=== PATIENT | male | born 1950 | race African-American/Black ===

== ENCOUNTER 2016-05-22 12:01 | Emergency (ER) | payer MEDICARE, OTHER ==
[~2016-05-22 12:01] MED LIST: ACETSUP650 PR; ACETUDL PEG; ASAB PO; BANOPHEN25 MG PO/LIQ; BENEPROTEIN PEG; BISR PR; CILOXAN OPH; CLARIT10 PEG; CONSTULOSE PEG; CORTISPORIN OPH; D5NS IV; DEXTROSE IV; DUONEB INH; ERY500 PEG; ERYTHROMYCIN ETHYLSUCCINATE 200 MG/5 ML PEG; ERYTHROMYCIN PEG; FEOSOLEL PEG; FESO4UDL PEG; FESO4UDL PO; FLOMAX4 PEG; FLORASTOR250 MG PEG; GAS-X80 MG PEG; GENASYME40 MG/0.6 PEG; GENTAK0.3 % OPH; GLUCAGEN IM; GLUCAGON SC; GLUCERNA PEG; GLUCOPHAGE1000 MG PEG; GLUCOSE PEG; GLUCOSE TAB PEG; GLUCPH PEG; H20 FLUSH PEG; HEPA50006 SC; HEPARIN INJ5000 U/ML SC; KEPPRA500 PEG; KEPPRAINJ PO; KEPPRAUDL PEG; L20 PEG; LACT30UDL PEG; LEVOTHROID50 MCG PEG; LEVOTHYROXIN100 MCG PEG; LEVOTHYROXIN112 MCG PEG; LEVOTHYROXIN112 MCG PO; LEVOTHYROXIN75 MCG PEG; LIOR10 PEG; LIQUID TEARS OPH; LOP25 PEG; LOP25 PO; MULTIPLE VIT PEG; MULTIPLE VIT PO; MURO1285% OPH; MYTAB GAS80 MG PEG; NEXIUM40 MG PEG; NEXIUM40 PEG; NORCO1 TA1 PEG; NORCO1 TA1 PO; NOVOLOG SC; NOVOPEN SC; PREV30 PEG; PREV30 PO; PRILOSEC10 M1 PEG; PRILOSEC40 MG PEG; REFRESH OPH; REFRESH PLUS0.5 % OPH; SODIUM CHLORIDE IV; T PEG; T PO; TEARGEN OP; THERA MULTI1 ML PEG; TRANSSCOP TOP; TYLENOL 8 HR650 MG PEG; TYLENOL PEG; VITAMIN C100 MG PEG; VITAMIN D1000 UNI1 PEG; VITAMIN D31000 UNIT PEG; VITAMIN D31000 UNIT PO; VITC500 PEG; XIFAXAN550 MG PEG; ZINC220C PEG; [UNRECOGNIZED DRUG - OTHER]; [UNRECOGNIZED DRUG - OTHER]; [UNRECOGNIZED DRUG - OTHER] OPH; [UNRECOGNIZED DRUG - OTHER] PEG; [UNRECOGNIZED DRUG - OTHER] PEG; [UNRECOGNIZED DRUG - OTHER] PEG; [UNRECOGNIZED DRUG - REMARK] PO; [UNRECOGNIZED DRUG - REMARK] PO
[2016-05-22] MEDS ORDERED: PEP20 PEG (12:42)
[2016-05-22] MEDS ORDERED: SUCR PEG (12:43)
[2016-05-22] MEDS ORDERED: LOPID6 PEG (12:43)
[2016-05-22] MEDS ORDERED: CONSTULOSE PEG (12:44)
[2016-05-22] MEDS ORDERED: GLUCAGEN IM (12:44)
[2016-05-22] MEDS ORDERED: ADVIL PEG (12:45)
[2016-05-22] MEDS ORDERED: T PEG (12:45)
[2016-05-22 13:50] LABS: BE (BASE EXCESS) 3.7 MEQ/L (0 +/- 2.5); CARBOXYHEMOGLOBIN 1.3 % (0-3); HCO3 (ACTUAL BICARBONATE) 26.6 MEQ/L (23-27); HEMOBLOGIN CONTENT 9.2 G/DL (14-18); INSTRUMENT SERIAL # 8087; METHEMOGLOBIN 0.6 % (0-3); PCO2 (CO2 TENSION) 34 MMHG (35-45); PO2 (O2 TENSION) 94 MMHG (79-93); pH 7.52 (7.37-7.43)
[2016-05-22 13:51] LABS: HEMOGLOBIN 9.3 g/dL (13.6-17.8); MEAN CORPUS HGB CONC 30.8 g/dL (32.0-36.0); MEAN PLATELET VOLUME 10.6 fL (9.2-13.0); RBC DISTRIBUTION WIDTH 16.5 % (12.0-16.0)
[2016-05-22 13:51] LABS: ALLENS TEST Pos; O2 CONTENT 12.6 VOL% (18-24); OPERATOR ID 14335; SAMPLE Arterial
[2016-05-22 13:53] LABS: HEMATOCRIT 30.2 % (40.0-51.0); MEAN CORPUSCULAR HEMOGLOB 23.8 pg (26.0-34.0); MEAN CORPUSCULAR VOLUME 77.4 fL (80-100); PLATELET COUNT 276 10/3/uL (150-400); WHITE BLOOD CELLS 7.1 10/3/uL (4.5-10.5)
[2016-05-22 14:01] LABS: INTERNATIONAL NORMAL RATI 1.2 UNITS (-); PROTIME (NOT ORD) 14.8 SEC (12.0-14.5)
[2016-05-22 14:06] LABS: A/G RATIO 0.4 (0.7-1.9); ALBUMIN 2.3 G/DL (3.5-5.0); CALCIUM, SERUM 8.9 MG/DL (8.5-10.4); CHLORIDE, SERUM 102 MMOL/L (96-112); CO2 (CARBON DIOXIDE) 28 MMOL/L (24-34); CREATININE 0.46 MG/DL (0.70-1.30); GFR AFRICAN AMERICAN 134 ML/MIN (>=60); GFR NON AFRICAN AMERICAN 116 ML/MIN (>=60); GLUCOSE, SERUM 120 MG/DL (60-99); POTASSIUM, SERUM 4.3 MMOL/L (3.5-5.3); SGOT(AST) 57 U/L (5-40); SGPT(ALT) 26 U/L (5-65); SODIUM, SERUM 137 MMOL/L (135-148); TOTAL PROTEIN 8.3 G/DL (6.0-8.5)
[2016-05-22 14:08] LABS: ALKALINE PHOSPHATASE 134 U/L (45-117); BUN (BLOOD UREA NITROGEN) 21 MG/DL (6-23); TOTAL BILIRUBIN 0.7 MG/DL (0-1.2)
[2016-05-22 14:10] LABS: BAND NEUTROPHILS 6 %; EOSINOPHILS 4 %; EOSINOPHILS ABSOLUTE (CALC) 0.28 10/3/uL (0.0-0.53); LYMPHOCYTES 12 %; LYMPHOCYTES ABSOLUTE (CALC) 0.85 10/3/uL (0.67-4.30); MICROCYTES 1+ (5-10/OIF) (0-5/OIF); MONOCYTES 10 %; MONOCYTES ABSOLUTE (CALC) 0.71 10/3/uL (0.21-1.20); NEUTROPHILS ABSOLUTE (CALC) 5.25 10/3/uL (2.02-8.40); PLATELET ESTIMATE ADQ (ADEQUATE); SEGMENTED NEUTROPHIL (0) 68 %; TOTAL NUCLEATED CELLS 100
[2016-08-04] MEDS ORDERED: MULTIVIT/MIN PEG (15:51)
[2016-08-04] MEDS ORDERED: ERY500 PEG (15:51)
[2016-08-04] MEDS ORDERED: FESO4UDL PEG (15:52)
[2016-08-04] MEDS ORDERED: FLOMAX4 PEG (15:53)
[2016-08-04] MEDS ORDERED: PROBIOTIC CAPSULE PEG (15:54)
[2016-08-04] MEDS ORDERED: KEPPRAUDL PEG (15:56)
[2016-08-04] MEDS ORDERED: CONSTULOSE PEG (15:57)
[2016-08-04] MEDS ORDERED: LIQUID TEARS OPH (15:57)
[2016-08-04] MEDS ORDERED: MURO1285% OPH (15:58)
[2016-08-04] MEDS ORDERED: SYN075 PEG (15:58)
[2016-08-04] MEDS ORDERED: NEXIUM40 MG PEG (15:59)
[2016-08-04] MEDS ORDERED: XIFAXAN550 MG PEG (15:59)
[2016-08-04] MEDS ORDERED: LIOR10 PEG (15:59)
[2016-08-04] MEDS ORDERED: L20 PEG (16:00)
[2016-08-04] MEDS ORDERED: SUCR PEG (16:00)
[2016-08-04] MEDS ORDERED: MYTAB GAS80 MG PEG (16:01)
[2016-08-04] MEDS ORDERED: GLUCPH PEG (16:02)
[2016-08-04] MEDS ORDERED: GLUCOPHAGE1000 MG PEG (16:02)
[2016-08-04] MEDS ORDERED: PEP20 PEG (16:02)
[2016-08-04] MEDS ORDERED: VITAMIN D400 UNI1 PEG (16:03)
[2016-08-04] MEDS ORDERED: HUMALOG SC (16:05)
[2016-08-04] MEDS ORDERED: ADVIL 100100 MG/5 M PEG (16:06)
[2016-08-04] MEDS ORDERED: NORCO1 TA1 PEG (16:07)
[2016-08-04] MEDS ORDERED: ULTRAM50 PEG (16:07)
== END 2016-05-22 16:04 | disposition home or self-care (01) ==
LOC: ER 12:01
PROVIDERS: Internal Medicine Nephrology; Physician Assistant
DX: L89.104 Pressure ulcer of unspecified part of back, stage 4 (principal); I25.2 Old myocardial infarction; I12.9 Hypertensive chronic kidney disease with stage 1 through stage 4 chronic kidney disease, or unspecified chronic kidney disease; N18.9 Chronic kidney disease, unspecified; E10.9 Type 1 diabetes mellitus without complications; D64.9 Anemia, unspecified; Z86.73 Personal history of transient ischemic attack (TIA), and cerebral infarction without residual deficits; Z79.4 Long term (current) use of insulin
CPT/HCPCS: 31720; 36600; 80053; 82805; 85007; 85027; 85610; 94002; 99285

== ENCOUNTER 2016-07-19 18:57 | Inpatient (IN) | payer MEDICARE, OTHER ==
--- NOTE | ~2016-07-19 | CN ---
Consultation Report [facility] [address] [place]. [address] NAME: BARRY GARCIA : 46 STATUS : ADM IN PAT#: [id number] AGE: 65 ADM/REG DATE : 07/19/16 MR#: [id number] REPORT SERV DATE: 07/20/16 DICTATED BY: JESUS PAGAN DATE: 07/20/16 REPORT STATUS : Draft TRANSCRIBED BY: MODL DATE: 07/20/16 GI CONSULTATION DATE OF CONSULTATION: 07/20/2016 He is a 65-year-old male patient admitted 07/19/2016. REASON FOR CONSULTATION: GI bleed, Hemoccult-positive stools. HISTORY OF PRESENT ILLNESS: Mr. Garcia is a 65-year-old male patient, who has a history of chronic vegetative state secondary to CVA in 2012. It should be noted that all of his history of present illness has been gathered from the chart as well as the primary RN. It appears that he was sent in yesterday from [facility] for "GI bleed." After reviewing his records, it looks like he had bleeding around his PEG tube site with a drop in his hemoglobin. Looking back at [facility] records, hemoglobin in May, he had a hemoglobin noted to be 9.3. When he came in to [facility], hemoglobin was 6.6. He is presently being transfused packed red blood cells. He is unable to give any history at all. Notes revealed that he had Hemoccult in the emergency room that were positive, however noted to be light brown stool. There has been no mention of nausea, vomiting, and hematemesis. PEG tube was evaluated by myself, it flushed and pulled back, the return was gastric content; however, he does have bright red blood oozing from around his PEG tube site. He also has a Olivas catheter in. He has some bleeding from around his urethra also. I have discussed the case with Dr. Gomez. We will plan on pursuing upper endoscopy today to rule out any ulcerations from the PEG tube or buried bumper syndrome. He does have also a history of grade 2 esophageal varices, found on EGD 03/28/2016. We saw him in for concerns of upper GI bleed. Findings on that exam had revealed no evidence of GI bleeding and a grade 2 varices with no banding being performed as there was no suggestion of any recent bleeding or on the entire examination of his stomach. Unable to tell when his last colonoscopy was. I have discussed with the primary RN. We will plan on the EGD today. PAST MEDICAL HISTORY: Positive for GI bleed, CVA 2012 with persistent vegetative state, status post tracheostomy and PEG tube, chronic respiratory failure with ventilator dependence, hepatitis C, hypertension, chronic kidney disease, type 2 diabetes, coronary artery disease with history of [place], hypothyroidism, anemia, BPH, gastroparesis, urinary tract infections, sacral decubitus, sepsis, and seizure disorder. SURGICAL HISTORY: Trach, PEG, and cholecystectomy. FAMILY HISTORY: Unable to be obtained. SOCIAL HISTORY: Lives at [facility]. No alcohol, tobacco, or illicits noted in the chart. ALLERGIES: NO KNOWN ALLERGIES. Consultation Report [address] [place]. [address] NAME: BARRY GARCIA : 46 STATUS : ADM IN [facility]#: [id number] AGE: 65 ADM/REG DATE : 07/19/16 MR#: [id number] REPORT SERV DATE: 07/20/16 DICTATED BY: JESUS PAGAN DATE: 07/20/16 REPORT STATUS : Draft TRANSCRIBED BY: RASTA DATE: 07/20/16 HOME MEDICATIONS: Tylenol; DuoNeb; Artificial Tears; baclofen; vitamin D; Nexium; Pepcid; iron; Lasix; Lopid; GlucaGen; Motrin; NovoLog; Constulose; Keppra; Synthroid; Glucophage; multivitamin; Xifaxan; simethicone; Carafate; Flomax; Ultram; erythromycin; probiotic; and D mannose. REVIEW OF SYSTEMS: Unable to be obtained secondary to the patient's mental status. PHYSICAL EXAMINATION: VITAL SIGNS: Temperature 98.6, pulse 93, respirations 16, and blood pressure 95/55. NEUROLOGIC: Noncommunicative. Chronically debilitated male, resting in bed. Noted chronic vegetative state. Eyes are open. GENERAL: He has noted chronic debility. No acute distress. HEAD, EARS, EYES, NOSE, AND THROAT: Anicteric. Pupils are equal, round, and reactive to light and accommodation. NECK: Supple neck. No JVD. LUNGS: Coarse. Notable trach and vent. CARDIOVASCULAR SYSTEM: Regular rate and rhythm. ABDOMEN: Round with mild distention. Hypoactive bowel sounds in all four quadrants. PEG tube with oozing of bright red blood around the site. No rebound or guarding elicited on exam. EXTREMITIES: He has generalized edema and noted bilateral upper and lower extremity contractures. PERTINENT LABORATORY DATA: Sodium 139, potassium 3.5, BUN is 21, and creatinine is 0.69. White count 5.9, hemoglobin 6.9, hematocrit 24.3, and platelet count 24.1. INR of 1.1. Heme-positive in the emergency room. ASSESSMENT/PLAN: 1. Hemoccult-positive stools. Questionable GI bleed. Positive bleeding from around the PEG. 2. Acute blood loss anemia with history of chronic anemia. 3. UTI. 4. Chronic ventilator dependence vegetative state, status post CVA 2012. 5. Oropharyngeal dysphagia status post PEG. 6. History of grade 2 varices on endoscopy in March of 2016. PLAN: 1. PPI drip. 2. EGD today. 3. Followup H and H. 4. Morning labs. 5. Other recommendations to follow endoscopy. Consultation Report [address] [place]. [address] NAME: BARRY GARCIA : 46 STATUS : ADM IN [facility]#: [id number] AGE: 65 ADM/REG DATE : 07/19/16 MR#: [id number] REPORT SERV DATE: 07/20/16 DICTATED BY: JESUS PAGAN DATE: 07/20/16 REPORT STATUS : Draft TRANSCRIBED BY: RASTA DATE: 07/20/16 STEPHANIE/RASTA PAUL Hyman / [id number] CC: Luis F Roldan M.D.
--- NOTE | ~2016-07-19 | CN ---
Consultation Report [address] [place]. [address] NAME: BARRY GARCIA : 46 STATUS : ADM IN PAT#: [id number] AGE: 65 ADM/REG DATE : 07/19/16 MR#: [id number] REPORT SERV DATE: 07/21/16 DICTATED BY: JORDI TELLEZ III DATE: 07/21/16 REPORT STATUS : Draft TRANSCRIBED BY: MODL DATE: 07/21/16 CONSULTATION DATE OF CONSULTATION: 07/21/2016 REASON FOR CONSULTATION: Suprapubic tube placement. HISTORY OF PRESENT ILLNESS: Mr. Garcia is a 65-year-old, male with a history of chronic respiratory failure, vent dependent and chronic debility, bed-bound, who is a resident of [facility]. He is transferred to the ER for possible GI bleed. The patient has been dependent, has a history of encephalopathy and is unable to give a history. MEDICATIONS: Reviewed. ALLERGIES: NO KNOWN DRUG ALLERGIES. PAST MEDICAL HISTORY: 1. CVA with chronic vegetative state. 2. Gastric outlet obstruction. 3. Coronary artery disease with history of [place]. 4. Hepatitis C. 5. Diabetes. 6. Dementia. 7. Hyperlipidemia. 8. Chronic encephalopathy. 9. Chronic sacral pressure ulcer. 10.BPH with chronic Olivas. 11.Vent dependent. 12.Dysphagia with PEG tube. 13.Chronic kidney disease. 14.Anemia. 15.Hypertension. 16.History of seizures. 17.History of pneumonia. 18.History of anasarca. 19.Hypothyroidism. SURGICAL HISTORY: Status post tracheostomy and PEG tube placement and multiple debridement. PHYSICAL EXAMINATION: The patient has a Olivas catheter draining dark cloudy urine. ASSESSMENT: Consultation Report [address] [place]. [address] NAME: BARRY GARCIA : 46 STATUS : ADM IN PAT#: [id number] AGE: 65 ADM/REG DATE : 07/19/16 MR#: [id number] REPORT SERV DATE: 07/21/16 DICTATED BY: JORDI TELLEZ III DATE: 07/21/16 REPORT STATUS : Draft TRANSCRIBED BY: MODL DATE: 07/21/16 1. Urinary retention with chronic Olivas catheter. 2. Recurrent urinary tract infections. PLAN: We will have a suprapubic tube placed with CT guidance. PH/MODL Jordi Tellez III, M.D. / [id number] CC: Luis F Roldan M.D.
--- NOTE | ~2016-07-19 | HP ---
History And Physical [place] [address] [facility] [place]. [address] NAME: BARRY GARCIA : 46 STATUS : ADM IN PAT#: [id number] AGE: 65 ADM/REG DATE : 07/19/16 MR#: [id number] REPORT SERV DATE: 07/20/16 DICTATED BY: TAQUERIA DE LA FUENTE DATE: 07/20/16 REPORT STATUS : Draft TRANSCRIBED BY: MODL DATE: 07/20/16 DATE OF ADMISSION: 07/19/2016 CHIEF COMPLAINT: Severe anemia and positive Hemoccult. HISTORY OF PRESENT ILLNESS: The patient is a 65-year-old -[place] male with history of chronic respiratory failure, vent-dependent and chronic debility, bed bound, who is a resident of [facility] and was transferred to [facility] Emergency Department for further evaluation of possible GI bleed with positive Hemoccult x3 and worsening anemia on top of chronic anemia. The patient is vent dependent and has history of encephalopathy therefore, unable to obtain complete medical, family, and social history. No family member is at bedside. I obtained information from discussing with nurse practitioner at [facility], reviewing medical records from [facility] EMR, medical records obtained from [facility], and recent emergency room visit on 07/19/2016. ALLERGIES: NO KNOWN DRUG ALLERGIES. CODE STATUS: Reviewed POST form from [facility]. The patient is a full code. MEDICATIONS: 1. Tylenol 650 mg per PEG q.4 hours p.r.n. 2. DuoNeb inhalation three times a day scheduled. 3. Artificial Tears one drop both eyes twice a day. 4. Baclofen 10 mg three times a day. 5. Vitamin D 1000 units via PEG daily. 6. Nexium 40 mg via PEG daily. 7. Pepcid 20 mg via PEG at bedtime. 8. Iron supplement 220 mg twice a day. 9. Lasix 20 mg every morning. 10.Lopid 600 mg twice a day. 11.Glucagon 1 mg IM p.r.n. for hypoglycemia. 12.Ibuprofen 400 mg every four hours p.r.n. 13.Insulin sliding scale. 14.Lactulose 30 mL twice a day. 15.Keppra 500 mg twice a day. 16.Levothyroxine 75 mcg tablet every morning. 17.Metformin 1000 mg every morning. 18.Metformin 500 mg at bedtime. 19.Multivitamin every morning. 20.Rifaximin 550 mg tablet twice a day. 21.Simethicone 80 mg tablet every morning. 22.Sodium chloride ophthalmic one drop both eyes three times a day. 23.Carafate 1 g via PEG twice a day. History And Physical [address] [address] NAME: BARRY GARCIA : 46 STATUS : ADM IN [facility]#: [id number] AGE: 65 ADM/REG DATE : 07/19/16 MR#: [id number] REPORT SERV DATE: 07/20/16 DICTATED BY: TAQUERIA DE AL FUENTE DATE: 07/20/16 REPORT STATUS : Draft TRANSCRIBED BY: RASTA DATE: 07/20/16 24.Flomax 0.4 mg at bedtime. 25.Tramadol 50 mg every eight hours p.r.n. for pain. 26.E.E.S granules 200 mg per 5 mL every eight hours for history of gastroparesis. 27.Probiotics one cap every morning. 28.D-mannose 450/250 mg twice a day via PEG. PAST MEDICAL HISTORY: 1. Includes CVA with chronic vegetative state with right hemiparesis, bed bound. 2. History of gastric outlet obstruction and chronic ileus. 3. History of coronary artery disease with history of [place]. 4. Hepatitis C. 5. Type 2 diabetes with insulin. 6. Dementia. 7. Hyperlipidemia. 8. Chronic encephalopathy. 9. Chronic sacral pressure ulcer, stage IV. 10.BPH with history of urinary retention and chronic Olivas. 11.Chronic respiratory failure, vent dependent. 12.Dysphagia with PEG. 13.Chronic kidney disease, stage II. 14.History of iron deficiency anemia. 15.Hypertension. 16.History of seizure. 17.History of Pseudomonas and MRSA pneumonia. 18.History of sacral wound infection with Acinetobacter. 19.History of anasarca. 20.Hypothyroidism. PAST SURGICAL HISTORY: Status post tracheostomy and PEG tube placement, multiple debridement of his pressure ulcer. SOCIAL HISTORY: The patient is a resident of [facility]. He is a retired dockworker and . The patient has a family; however, he has a conservator in place for him, her name is Katelynn Snyder. REVIEW OF SYSTEMS: Limited secondary to the patient being on the vent and encephalopathic. I discussed with nurse practitioner at [facility], he reports the patient with chronic anemia; however, recently been evaluated for possible GI bleed secondary to decreasing H and H. The patient with positive Hemoccult x3. Therefore, the patient was sent to the emergency room for further evaluation of anemia and possible GI bleed. [employer] reports the patient with history of Acinetobacter infected wound, but none recently. He reports no history of the patient having Acinetobacter in sputum. The patient with history of MRSA and Pseudomonas pneumonia. I discussed with nurse, reports the patient completing his second unit of blood transfusion and tolerated, is pending EGD and GI has evaluated the patient today. History And Physical [address] [address] NAME: BARRY GARCIA : 46 STATUS : ADM IN [facility]#: [id number] AGE: 65 ADM/REG DATE : 07/19/16 MR#: [id number] REPORT SERV DATE: 07/20/16 DICTATED BY: TAQUERIA DE LA FUENTE DATE: 07/20/16 REPORT STATUS : Draft TRANSCRIBED BY: RASTA DATE: 07/20/16 VITAL SIGNS: A.m. vital signs, temp 99.8, pulse of 92, respiratory rate of 16, BP of 95/54, sat O2 100% with FiO2 of 40% CMV, weight 65.6 kg, BMI of 24.7. LABORATORY STUDIES: On 07/19/2016 revealed WBC of. 8.5, hemoglobin 6.6, hematocrit 24.7, and platelet of 277. Sodium 136, potassium 3.6, chloride 93, CO2 of 32, BUN 27, creatinine of 0.86, GFR of 104, and glucose of 137. AST 62. Bilirubin 1.1, total protein 8.4. ALT 18. Albumin 2.0. Alkaline phosphatase of 127. Magnesium of 2.1. 07/20/2016, laboratory revealed WBC of 6.8, hemoglobin 6.9, hematocrit 24.3, INR 1.1, PT of 14.5, PTT of 32.7, and platelet of 240. Lactate on admission was 6.4, and lactate on 07/20/2016 was 4.2. The patient on a ventilator with tidal volume set at 0500 hours PEEP of 8 and PIP of 26, FiO2 40%. Rate of 10. Chest x-ray on 07/19/2016, revealed stable enlarged central pulmonary arteries. Stable pleural thickening on the right. No left pleural effusion seen and lungs are clear with normal peripheral vasculature. Urine culture preliminary done on 07/19/2016 is gram-negative bacilli approximately 100,000, pending ID and sensitivity. PHYSICAL EXAMINATION: NEURO: The patient with encephalopathy but opens eyes to minimal stimulation. HEENT: Oral mucosa moist. Trach secured. No drainage noted or bleeding. The patient is dentitious. Eyes, clear and bilateral nonicteric. No drainage noted. CHEST: No chest deformity noted. LUNGS: Mild upper rhonchi noted on auscultation. No wheezing. The patient is on a vent. CV: Regular rate and rhythm. Normal S1, S2. Mapped blood pressure of 67. ABDOMEN: The patient's abdomen is round, but soft on palpation. Good bowel sounds. Left upper quadrant PEG tube secured noted, red blood on PEG tube dressing but no active bleeding noted. : Olivas in use with clear yellow urine. Intact. EXTREMITIES: Generalized and a sacral of 1+ edema, right wrist contracture noted. Bilateral heels are floated. SKIN: The sacral wound dressing intact. IV fluid with normal saline at 40 mL. ASSESSMENT: 1. Possible gastrointestinal bleed with positive Hemoccult. 2. Acute blood loss on top of chronic anemia. 3. Gram-negative bacilli urinary tract infection. 4. Chronic respiratory failure, vent dependent. 5. Dysphagia with PEG tube. 6. History of cerebrovascular accident with right hemiparesis and chronic debility. 7. Type 2 diabetes with insulin. 8. Chronic kidney disease, stage II. 9. Chronic sacral pressure ulcer, stage II with history of Acinetobacter and wound. 10.Seizure disorder. 11.Hypertension, primary with BP low tendency likely secondary to acute blood loss versus sepsis with urinary tract infection. 12.History of gastric outlet obstruction and ileus. 13.History of urinary tract infection secondary to history of urinary retention. History And Physical [address] [address] NAME: BARRY GARCIA : 46 STATUS : ADM IN [facility]#: [id number] AGE: 65 ADM/REG DATE : 07/19/16 MR#: [id number] REPORT SERV DATE: 07/20/16 DICTATED BY: TAQUERIA DE LA FUENTE DATE: 07/20/16 REPORT STATUS : Draft TRANSCRIBED BY: RASTA DATE: 07/20/16 14.Chronic encephalopathy, status post cerebrovascular accident. 15.Chronic debility, status post cerebrovascular accident. PLAN: 1. I appreciate GI consult. The patient is n.p.o. with IV Protonix and scheduled EGD today. The patient with admission hemoglobin and hematocrit of 6.6 and 24.7, Hemoccult in the ER as well as reported Hemoccult at [facility] were positive. The patient just completed two units of pack red blood cells. We will obtain post blood transfusion H and H and repeat CBC and BMP in a.m. The patient is at risk for further hypoxia or acute coronary syndrome with severe anemia. 2. The patient with history of UTI secondary to history of urinary tract infection. The patient admission urine culture with preliminary result of gram-negative bacilli, pending ID and sensitivity. We will continue IV Rocephin for now. Continue the patient on contact isolation given the history of Acinetobacter, his wound. The patient is at risk for sepsis. 3. The patient with chronic respiratory failure, vent dependent. We will continue current vent support. The patient is stable with his respiratory status. His chest x-ray on admission were stable with no acute changes. Continue to monitor sat O2. Continue breathing treatment. If necessary we will consult Pulmonology but at this time, we will hold consult since respiratory status stable. The patient is at risk for further hypoxia. 4. The patient with history of dysphagia with PEG tube. The patient continued to tolerate tube feeding; however, tube feeding is on hold for now given n.p.o. status for EGD. We will plan to continue to monitor gastric residuals as well as tube feeding residual once tube feeding resumed, keep head of bed greater than 30 degrees. The patient is at risk for aspiration. The patient with history of ileus. We will need to continue prokinetic once the patient n.p.o. status discontinue. Consider Reglan. The patient currently on scheduled erythromycin. 5. The patient with history of diabetes. We will hold off on oral agent. Continue sliding scale and Accu-Chek q.4 hours. The patient is at risk for DKA. 6. The patient with admission creatinine of 0.86. Improve with IV fluid. Today is 0.69. The patient does have history of chronic kidney disease, stage II. We will monitor renal function, at risk for ROSA. 7. Pending wound care referral for his chronic pressure ulcer. Monitor for any signs and symptoms of infection. Continue contact isolation. The patient is at risk for osteomyelitis or recurrent wound infection. 8. The patient with history of seizure disorder. Since the patient is n.p.o. at this time, pending EGD. We will refer to Pharmacy to change Keppra via PEG to IV. 9. The patient with history of hypertension, but came in with low BP. He was not placed on pressor. The patient is maintaining his systolic above 95 within map greater than 65. Continue to monitor BP if needed. We will give pressor to maintain BP but for now, likely will improve if GI bleed resolved and the patient has had blood transfusion. The patient is at risk for further hypoxia. 10.The patient with history of hypothyroidism. He is on levothyroxine. Since n.p.o., we will change that from via PEG to IV for now. 11.We will hold other oral medication to include Famotidine since the patient is on IV Protonix, iron sulfate, multivitamin, Lasix, gemfibrozil, metformin, and if the patient History And Physical [address] [address] NAME: BARRY GARCIA : 46 STATUS : ADM IN [facility]#: [id number] AGE: 65 ADM/REG DATE : 07/19/16 MR#: [id number] REPORT SERV DATE: 07/20/16 DICTATED BY: TAQUERIA DE LA FUENTE DATE: 07/20/16 REPORT STATUS : Draft TRANSCRIBED BY: RASTA DATE: 07/20/16 is off n.p.o., he can continue. We can continue baclofen for now. Other medications via PEG should be held until n.p.o. as listed. We will also discontinue lactulose for now. Monitor bowel movement. The patient is at risk for recurrent or worsening ileus, bowel obstruction. 12.We will repeat laboratory study in a.m. Post form in chart, in chart. 13.The patient is full code. DICTATED BY: Sun Galloway NP CLP/RASTA Taqueria De La Fuente M.D. / [id number] CC: Luis F Roldan M.D.
--- NOTE | ~2016-07-19 | DS ---
Discharge Summary [facility] [address] [place]. [address] NAME: BARRY GARCIA : 46 STATUS : DIS IN PAT#: [id number] AGE: 65 ADM/REG DATE : 07/19/16 MR#: [id number] REPORT SERV DATE: 08/04/16 DICTATED BY: TAQUERIA DE LA FUENTE DATE: 08/03/16 REPORT STATUS : Draft TRANSCRIBED BY: MODCecilia DATE: 08/03/16 Data Collection from hospitalization DISCHARGE DIAGNOSES: 1. Recent GI bleed - resolved - with history of grade 3 esophageal varices and AVM. 2. Anemia of chronic disease with recent acute blood loss anemia. 3. ESBL Proteus and E. coli urinary tract infection. 4. Chronic respiratory failure - vent dependent. 5. Dysphagia with PEG tube. 6. History of urinary retention. 7. Chronic anasarca. 8. Ascites with cirrhosis. 9. Type 2 diabetes. 10.Hypertension. 11.History of cerebrovascular accident with chronic vegetative state and right hemiparesis. 12.History of gastric outlet obstruction and chronic ileus. 13.Coronary artery disease. 14.History of myocardial infarction. 15.Hepatitis C. 16.Dementia. 17.Hyperlipidemia. 18.Chronic encephalopathy. 19.Chronic sacral pressure ulcer, stage IV. 20.Benign prostatic hypertrophy. 21.Stage 2 chronic kidney disease. 22.History of seizures. 23.Hypothyroidism. CONSULTATIONS: 1. Dr. Jordi Velázquez. 2. Dr. Berhane Ortasell. PROCEDURES PERFORMED: 1. EGD to the small bowel, 07/20/2016. 2. CT scan of the abdomen and pelvis without contrast, 07/23/2016. 3. Introduction of suprapubic catheter, 07/24/2016. MEDICATIONS: Artificial Tears one drop in each eye twice a day; Lioresal 10 mg per PEG tube three times a day; vitamin D 1000 units per PEG tube every morning; erythromycin 500 mg every 8 hours; ferrous sulfate 220 mg per PEG tube twice a day; NovoLog injection insulin as instructed; Constulose 30 mL per PEG tube twice a day; Synthroid 75 mcg per PEG tube every morning; Centrum multivitamins with minerals 15 mL daily; Nexium 40 mg per PEG tube daily at 6 a.m.; Zosyn 3.375 g IV every 8 hours as instructed; Xifaxan 550 mg per PEG tube twice a day; Tammy-128 one drop three times a day; Carafate 1 g per PEG tube twice a day; Flomax 0.4 mg per PEG tube at bedtime; sodium chloride 25 mL/hour as instructed; DuoNeb 3 mL via inhaler every four hours; erythromycin granules as instructed; Lasix 20 mg per PEG tube every morning; probiotic capsule one capsule every morning; Mytab Gas 80 mg per PEG tube Discharge Summary [address] [address] NAME: BARRY GARCIA : 46 STATUS : DIS IN PAT#: [id number] AGE: 65 ADM/REG DATE : 07/19/16 MR#: [id number] REPORT SERV DATE: 08/04/16 DICTATED BY: TAQUERIA DE LA FUENTE DATE: 08/03/16 REPORT STATUS : Draft TRANSCRIBED BY: RASTA DATE: 08/03/16 every morning; Glucophage 500 mg per PEG tube at bedtime and 1000 mg per PEG tube every morning; Keppra 500 mg per PEG tube twice a day; Pepcid 20 mg per PEG tube at bedtime; DuoNeb inhaled solution one nebulized inhaler three times a day; Lopid 600 mg per PEG tube twice a day; D-Mannose 450 mg twice a day; Tylenol 650 mg per PEG tube every four hours as needed; Ultram 50 mg per PEG tube every 8 hours as needed; and glucagon 1 mg IM as needed. CONDITION AT DISCHARGE: Stable. DISPOSITION: The patient was discharged to [facility] [place] [facility] on tube feedings with activities as instructed. HOSPITAL COURSE: This is a 65-year-old man who has a history of chronic respiratory failure, ventilator dependent and chronic debility and is bed-bound, who is a resident of [facility] [place]. He was transferred to the [facility] Emergency Department with possible GI bleed and positive Hemoccult x3 as well as worsening anemia on top of chronic anemia. He is ventilator dependent and has a history of encephalopathy, therefore we were unable to obtain a complete medical, family, and social history. The patient was admitted to the hospital at this time for further evaluation and treatment. Upon admission, the patient was held n.p.o., IV Protonix was started. It was felt he should undergo an EGD. He was transfused two units of packed red blood cells. IV Rocephin was continued. The patient was on contact isolation given his history of Acinetobacter of his wound. The patient is at risk for sepsis. We would continue to monitor his O2 saturations. Breathing treatments were continued. The patient has a PEG tube with dysphagia. He continued to tolerate tube feedings; however, tube feedings were on hold for now given his n.p.o. status for the EGD. The head of his bed would be kept elevated at greater than 30 degrees, sliding scale insulin was provided. IV fluids were continued. The patient does have a history of a seizure disorder. He was going to be given IV Keppra. He has a history of hypothyroidism and is on levothyroxine. Since he was n.p.o., we changed that to IV levothyroxine. Baclofen was continued for now. The following day, he was seen by Berhane Rivera regarding GI bleed and Hemoccult-positive stools. The patient has a Olivas catheter in place. His PEG tube was evaluated, it flushed and pullback. The return was gastric content; however, he did have bright red blood oozing from around the PEG tube site. He had some bleeding from his urethra also. We would plan on pursuing upper endoscopy later in the day to rule out ulcerations from the PEG tube or buried bumper syndrome. He has a history of grade 2 esophageal varices found on the EGD 03/28/2016. Findings on that exam had revealed no evidence of GI bleeding and grade 2 varices with no banding being performed. We were unable to tell when his last colonoscopy was. Proton pump inhibitor drip was continued. EGD was performed. This revealed healthy PEG tube and grade 3 varices. On 07/21/2016, he was seen by Dr. Jordi Velázquez regarding suprapubic tube placement. The patient has a Olivas catheter in place draining dark cloudy urine. The patient has urinary retention with chronic Olivas catheter and recurrent urinary tract infections. It was felt that he should undergo suprapubic tube placement with CT guidance. Abdomen was soft with moderate distention. PEG tube site looked normal. The upper GI bleed/PEG tube bleed had resolved. IV Protonix was continued as well as sliding scale insulin. Breathing treatments were continued as well. On 07/22/2016, the patient was tolerating tube feedings. The patient was found to have E. coli ESBL urinary tract infection. He had some increased abdominal Discharge Summary [address] [address] NAME: BARRY GARCIA : 46 STATUS : DIS IN PAT#: [id number] AGE: 65 ADM/REG DATE : 07/19/16 MR#: [id number] REPORT SERV DATE: 08/04/16 DICTATED BY: TAQUERIA DE LA FUENTE DATE: 08/03/16 REPORT STATUS : Draft TRANSCRIBED BY: RASTA DATE: 08/03/16 distention. On 07/23/2016, wound care was continued. KUB showed no ileus or obstruction. A CT scan of the abdomen and pelvis without contrast was performed, felt to be at risk for small bowel obstruction. The next day, he was tolerating his tube feedings. Discharge planning was performed. He underwent introduction of a suprapubic catheter. This was successful. Discharge planning was performed. On 07/25/2016, he had been found to have Proteus and E. coli ESBL urinary tract infection. Antibiotics were continued. Discharge instructions were given. Due to his improved and stable condition, he was discharged to [facility] with the above-stated instructions. Information collected by: Molly Duarte I submit the above information as my discharge summary. MARTY/RASTA Taqueria De La Fuente M.D. / [id number] CC: PAUL Hyman III, M.D. [facility] [place]
[2016-07-19 18:31] LABS: BASOPHILS 0.6 %; BASOPHILS ABSOLUTE 0.05 10/3/uL (0.0-0.16); EOSINOPHILS 1.1 %; EOSINOPHILS ABSOLUTE 0.09 10/3/uL (0.0-0.53); ER CBC TAT 0 Hrs 05 Mins; IMMATURE GRANULOCYTES 0.6 %; IMMATURE GRANULOCYTES ABSOLUTE 0.05 10/3/uL (0.0-0.11); LYMPHOCYTES 7.2 %; LYMPHOCYTES ABSOLUTE 0.61 10/3/uL (0.67-4.30); MEAN PLATELET VOLUME 10.6 fL (9.2-13.0); MONOCYTES 11.4 %; MONOCYTES ABSOLUTE 0.96 10/3/uL (0.21-1.20); NEUTROPHILS 79.1 %; NEUTROPHILS ABSOLUTE 6.69 10/3/uL (2.02-8.40); PLATELET COUNT 277 10/3/uL (150-400); WHITE BLOOD CELLS 8.5 10/3/uL (4.5-10.5)
[2016-07-19 18:34] LABS: HEMATOCRIT 24.7 % (40.0-51.0); HEMOGLOBIN 6.6 g/dL (13.6-17.8); MEAN CORPUS HGB CONC 26.7 g/dL (32.0-36.0); MEAN CORPUSCULAR HEMOGLOB 26.6 pg (26.0-34.0); MEAN CORPUSCULAR VOLUME 99.6 fL (80-100); RBC DISTRIBUTION WIDTH 20.5 % (12.0-16.0); RED CELL COUNT 2.48 10/6/uL (4.7-6.1)
[2016-07-19 18:35] LABS: MANUAL DIFF NO %
[2016-07-19 18:39] LABS: INTERNATIONAL NORMAL RATI 1.1 UNITS (-); PARTIAL THROMBO TIME 32.7 SEC (22.5-37.2); PROTIME (NOT ORD) 14.5 SEC (12.0-14.5)
[2016-07-19 18:48] LABS: A/G RATIO 0.3 (0.7-1.9); ALKALINE PHOSPHATASE 127 U/L (45-117); CALCIUM, SERUM 9.3 MG/DL (8.5-10.4); CHLORIDE, SERUM 93 MMOL/L (96-112); CO2 (CARBON DIOXIDE) 32 MMOL/L (24-34); CREATININE 0.86 MG/DL (0.70-1.30); GFR AFRICAN AMERICAN 104 ML/MIN (>=60); GFR NON AFRICAN AMERICAN 90 ML/MIN (>=60); GLOBULIN 6.4 G/DL (2.5-4.1); GLUCOSE, SERUM 137 MG/DL (60-99); POTASSIUM, SERUM 3.6 MMOL/L (3.5-5.3); SGOT(AST) 62 U/L (5-40); SGPT(ALT) 18 U/L (5-65); SODIUM, SERUM 136 MMOL/L (135-148); TOTAL BILIRUBIN 1.1 MG/DL (0-1.2); TOTAL PROTEIN 8.4 G/DL (6.0-8.5)
[2016-07-19 18:52] LABS: BUN (BLOOD UREA NITROGEN) 27 MG/DL (6-23)
[~2016-07-19 18:57] MED LIST changes: +ADVIL PEG; +LOPID6 PEG; +PEP20 PEG; +SUCR PEG
[2016-07-19 19:07] LABS: BAND NEUTROPHILS 6 %; BASOPHILS 2 %; BASOPHILS ABSOLUTE (CALC) 0.17 10/3/uL (0.0-0.16); EOSINOPHILS 4 %; EOSINOPHILS ABSOLUTE (CALC) 0.34 10/3/uL (0.0-0.53); ER DIFF TAT 0 Hrs 41 Mins; LYMPHOCYTES 3 %; LYMPHOCYTES ABSOLUTE (CALC) 0.26 10/3/uL (0.67-4.30); MONOCYTES 14 %; MONOCYTES ABSOLUTE (CALC) 1.19 10/3/uL (0.21-1.20); NEUTROPHILS ABSOLUTE (CALC) 6.55 10/3/uL (2.02-8.40); SEGMENTED NEUTROPHIL (0) 71 %; TOTAL NUCLEATED CELLS 100
[2016-07-19 19:08] LABS: ANISOCYTOSIS 1+ (5-10/OIF) (0-5/OIF); HYPOCHROMIA 1+ (3-10/OIF) (0-2/OIF); PLATELET ESTIMATE ADQ (ADEQUATE); POLYCHROMASIA 1+ (2-5/OIF) (0-1/OIF); TARGET CELLS FEW (3-10/OIF) (0-1/OIF)
[2016-07-19 20:25] LABS: ASCORBIC ACID (UR NOT ORDER) 40 (NEG); BILIRUBIN, URINE NEGATIVE (NEG); ER URINALYSIS TAT 0 Hrs 18 Mins; KETONE, URINE NEGATIVE (NEG); LEUKOCYTE ESTERASE(NOT OR LARGE (NEG); NITRITE (URINE) NEG (NEG); WBC (NOT ORDERED) (RFLEX) 152 (0-5)
[2016-07-19 21:13] LABS: LACTATE 6.4 MMOL/L (0.3-2.4)
[2016-07-19] MEDS ORDERED: LIOR10 PEG (22:00)
[2016-07-19] MEDS ORDERED: TEARS PURE OPH (22:00)
[2016-07-19] MEDS ORDERED: VITAMIN D1000 UNI1 PEG (22:01)
[2016-07-19] MEDS ORDERED: ERYTHROMYCIN ETHYLSUCCINATE 200 MG/5 ML PEG (22:03)
[2016-07-19] MEDS ORDERED: XIFAXAN550 MG PEG (22:04)
[2016-07-19] MEDS ORDERED: PROBIOTIC CAPSULE PEG (22:04)
[2016-07-19] MEDS ORDERED: SYN075 PEG (22:04)
[2016-07-19] MEDS ORDERED: L20 PEG (22:04)
[2016-07-19] MEDS ORDERED: MURO1285% OPH (22:05)
[2016-07-19] MEDS ORDERED: MYTAB GAS80 MG PEG (22:05)
[2016-07-19] MEDS ORDERED: FLOMAX4 PEG (22:05)
[2016-07-19] MEDS ORDERED: GLUCOPHAGE1000 MG PEG (22:06)
[2016-07-19] MEDS ORDERED: NEXIUM40 MG PEG (22:06)
[2016-07-19] MEDS ORDERED: GLUCPH PEG (22:06)
[2016-07-19] MEDS ORDERED: NOVOLOG SC (22:06)
[2016-07-19] MEDS ORDERED: DUONEB INH (22:07)
[2016-07-19] MEDS ORDERED: PEP20 PEG (22:07)
[2016-07-19] MEDS ORDERED: KEPPRAUDL PEG (22:07)
[2016-07-19] MEDS ORDERED: LOPID6 PEG (22:08)
[2016-07-19] MEDS ORDERED: SUCR PEG (22:08)
[2016-07-19] MEDS ORDERED: CONSTULOSE PEG (22:08)
[2016-07-19] MEDS ORDERED: D MANNOSE PEG (22:09)
[2016-07-19] MEDS ORDERED: MULTIVIT/MIN PEG (22:11)
[2016-07-19] MEDS ORDERED: FEOSOLEL PEG (22:11)
[2016-07-19] MEDS ORDERED: T PEG (22:11)
[2016-07-19] MEDS ORDERED: IBU400 PEG (22:12)
[2016-07-19] MEDS ORDERED: ULTRAM50 PEG (22:12)
[2016-07-19] MEDS ORDERED: GLUCAGEN IM (22:13)
[2016-07-20 05:50] LABS: BUN (BLOOD UREA NITROGEN) 21 MG/DL (6-23); CHLORIDE, SERUM 97 MMOL/L (96-112); CO2 (CARBON DIOXIDE) 32 MMOL/L (24-34); CREATININE 0.69 MG/DL (0.70-1.30); GFR AFRICAN AMERICAN 114 ML/MIN (>=60); GFR NON AFRICAN AMERICAN 98 ML/MIN (>=60); GLUCOSE, SERUM 88 MG/DL (60-99); HEMATOCRIT 24.3 % (40.0-51.0); HEMOGLOBIN 6.9 g/dL (13.6-17.8); MEAN CORPUS HGB CONC 28.4 g/dL (32.0-36.0); MEAN CORPUSCULAR HEMOGLOB 26.5 pg (26.0-34.0); MEAN CORPUSCULAR VOLUME 93.5 fL (80-100); MEAN PLATELET VOLUME 11.4 fL (9.2-13.0); PLATELET COUNT 241 10/3/uL (150-400); POTASSIUM, SERUM 3.5 MMOL/L (3.5-5.3); RBC DISTRIBUTION WIDTH 22.7 % (12.0-16.0); SODIUM, SERUM 139 MMOL/L (135-148); WHITE BLOOD CELLS 5.9 10/3/uL (4.5-10.5)
[2016-07-20 05:52] LABS: MANUAL DIFF YES %
[2016-07-20 06:39] LABS: BAND NEUTROPHILS 6 %; BASOPHILS 1 %; BASOPHILS ABSOLUTE (CALC) 0.06 10/3/uL (0.0-0.16); EOSINOPHILS 11 %; EOSINOPHILS ABSOLUTE (CALC) 0.65 10/3/uL (0.0-0.53); LYMPHOCYTES 6 %; LYMPHOCYTES ABSOLUTE (CALC) 0.35 10/3/uL (0.67-4.30); MONOCYTES 7 %; MONOCYTES ABSOLUTE (CALC) 0.41 10/3/uL (0.21-1.20); NEUTROPHILS ABSOLUTE (CALC) 4.43 10/3/uL (2.02-8.40); PLATELET ESTIMATE ADQ (ADEQUATE); SEGMENTED NEUTROPHIL (0) 69 %; TOTAL NUCLEATED CELLS 100
[2016-07-20 06:40] LABS: HYPOCHROMIA 1+ (3-10/OIF) (0-2/OIF); TARGET CELLS OCC (1-2/OIF) (0-1/OIF)
[2016-07-20 06:41] LABS: POLYCHROMASIA 1+ (2-5/OIF) (0-1/OIF)
[2016-07-21 20:22] LABS: BASOPHILS 0.4 %; BASOPHILS ABSOLUTE 0.03 10/3/uL (0.0-0.16); EOSINOPHILS 14.9 %; EOSINOPHILS ABSOLUTE 1.08 10/3/uL (0.0-0.53); HEMOGLOBIN 8.1 g/dL (13.6-17.8); IMMATURE GRANULOCYTES 0.1 %; IMMATURE GRANULOCYTES ABSOLUTE 0.01 10/3/uL (0.0-0.11); LYMPHOCYTES 8.3 %; MEAN CORPUS HGB CONC 29.3 g/dL (32.0-36.0); MEAN CORPUSCULAR HEMOGLOB 26.6 pg (26.0-34.0); MEAN CORPUSCULAR VOLUME 90.8 fL (80-100); MEAN PLATELET VOLUME 11.2 fL (9.2-13.0); MONOCYTES 8.7 %; MONOCYTES ABSOLUTE 0.63 10/3/uL (0.21-1.20); NEUTROPHILS 67.6 %; NEUTROPHILS ABSOLUTE 4.92 10/3/uL (2.02-8.40); PLATELET COUNT 238 10/3/uL (150-400); RBC DISTRIBUTION WIDTH 19.8 % (12.0-16.0); RED CELL COUNT 3.04 10/6/uL (4.7-6.1); WHITE BLOOD CELLS 7.3 10/3/uL (4.5-10.5)
[2016-07-21 20:24] LABS: HEMATOCRIT 27.6 % (40.0-51.0); MANUAL DIFF NO %
[2016-07-21 20:31] LABS: CHLORIDE, SERUM 96 MMOL/L (96-112); CO2 (CARBON DIOXIDE) 29 MMOL/L (24-34); CREATININE 0.54 MG/DL (0.70-1.30); GFR AFRICAN AMERICAN 126 ML/MIN (>=60); GFR NON AFRICAN AMERICAN 109 ML/MIN (>=60); SODIUM, SERUM 136 MMOL/L (135-148)
[2016-07-21 20:32] LABS: BUN (BLOOD UREA NITROGEN) 10 MG/DL (6-23); GLUCOSE, SERUM 116 MG/DL (60-99); POTASSIUM, SERUM 2.9 MMOL/L (3.5-5.3)
[2016-07-21 21:17] LABS: PHOSPHORUS, SERUM 1.9 MG/DL (2.5-4.5)
[2016-07-22 03:52] LABS: BASOPHILS 0.5 %; BASOPHILS ABSOLUTE 0.04 10/3/uL (0.0-0.16); EOSINOPHILS 12.8 %; EOSINOPHILS ABSOLUTE 0.93 10/3/uL (0.0-0.53); HEMATOCRIT 27.2 % (40.0-51.0); HEMOGLOBIN 8.1 g/dL (13.6-17.8); IMMATURE GRANULOCYTES 0.3 %; IMMATURE GRANULOCYTES ABSOLUTE 0.02 10/3/uL (0.0-0.11); LYMPHOCYTES 5.5 %; MEAN CORPUS HGB CONC 29.8 g/dL (32.0-36.0); MEAN CORPUSCULAR HEMOGLOB 26.9 pg (26.0-34.0); MEAN CORPUSCULAR VOLUME 90.4 fL (80-100); MEAN PLATELET VOLUME 10.6 fL (9.2-13.0); MONOCYTES 8.6 %; MONOCYTES ABSOLUTE 0.63 10/3/uL (0.21-1.20); NEUTROPHILS 72.3 %; NEUTROPHILS ABSOLUTE 5.27 10/3/uL (2.02-8.40); PLATELET COUNT 230 10/3/uL (150-400); RBC DISTRIBUTION WIDTH 19.3 % (12.0-16.0); RED CELL COUNT 3.01 10/6/uL (4.7-6.1); WHITE BLOOD CELLS 7.3 10/3/uL (4.5-10.5)
[2016-07-22 03:53] LABS: MANUAL DIFF NO %
[2016-07-22 04:05] LABS: BUN (BLOOD UREA NITROGEN) 10 MG/DL (6-23); CALCIUM, SERUM 7.3 MG/DL (8.5-10.4); CHLORIDE, SERUM 105 MMOL/L (96-112); CO2 (CARBON DIOXIDE) 29 MMOL/L (24-34); CREATININE 0.49 MG/DL (0.70-1.30); GFR AFRICAN AMERICAN 131 ML/MIN (>=60); GFR NON AFRICAN AMERICAN 113 ML/MIN (>=60); SODIUM, SERUM 140 MMOL/L (135-148)
[2016-07-22 04:07] LABS: GLUCOSE, SERUM 144 MG/DL (60-99); PHOSPHORUS, SERUM 2.7 MG/DL (2.5-4.5); POTASSIUM, SERUM 5.4 MMOL/L (3.5-5.3)
[2016-07-23 04:00] LABS: BASOPHILS ABSOLUTE 0.06 10/3/uL (0.0-0.16); EOSINOPHILS 16.7 %; EOSINOPHILS ABSOLUTE 1.04 10/3/uL (0.0-0.53); HEMATOCRIT 28.8 % (40.0-51.0); HEMOGLOBIN 8.5 g/dL (13.6-17.8); IMMATURE GRANULOCYTES 0.2 %; IMMATURE GRANULOCYTES ABSOLUTE 0.01 10/3/uL (0.0-0.11); LYMPHOCYTES 7.7 %; LYMPHOCYTES ABSOLUTE 0.48 10/3/uL (0.67-4.30); MEAN CORPUS HGB CONC 29.5 g/dL (32.0-36.0); MEAN CORPUSCULAR HEMOGLOB 26.5 pg (26.0-34.0); MEAN CORPUSCULAR VOLUME 89.7 fL (80-100); MEAN PLATELET VOLUME 10.7 fL (9.2-13.0); MONOCYTES 8.4 %; MONOCYTES ABSOLUTE 0.52 10/3/uL (0.21-1.20); PLATELET COUNT 242 10/3/uL (150-400); RBC DISTRIBUTION WIDTH 18.4 % (12.0-16.0); RED CELL COUNT 3.21 10/6/uL (4.7-6.1); WHITE BLOOD CELLS 6.2 10/3/uL (4.5-10.5)
[2016-07-23 04:02] LABS: MANUAL DIFF NO %
[2016-07-23 04:10] LABS: BUN (BLOOD UREA NITROGEN) 7 MG/DL (6-23); CHLORIDE, SERUM 103 MMOL/L (96-112); CO2 (CARBON DIOXIDE) 27 MMOL/L (24-34); CREATININE 0.59 MG/DL (0.70-1.30); GFR AFRICAN AMERICAN 121 ML/MIN (>=60); GFR NON AFRICAN AMERICAN 105 ML/MIN (>=60); PHOSPHORUS, SERUM 2.3 MG/DL (2.5-4.5); POTASSIUM, SERUM 4.4 MMOL/L (3.5-5.3); SODIUM, SERUM 140 MMOL/L (135-148)
[2016-07-23 04:14] LABS: GLUCOSE, SERUM 102 MG/DL (60-99)
[2016-07-24 04:16] LABS: BASOPHILS 0.8 %; BASOPHILS ABSOLUTE 0.07 10/3/uL (0.0-0.16); EOSINOPHILS 13.3 %; EOSINOPHILS ABSOLUTE 1.14 10/3/uL (0.0-0.53); HEMATOCRIT 29.3 % (40.0-51.0); HEMOGLOBIN 8.9 g/dL (13.6-17.8); IMMATURE GRANULOCYTES 0.3 %; IMMATURE GRANULOCYTES ABSOLUTE 0.03 10/3/uL (0.0-0.11); LYMPHOCYTES 9.1 %; LYMPHOCYTES ABSOLUTE 0.78 10/3/uL (0.67-4.30); MEAN CORPUS HGB CONC 30.4 g/dL (32.0-36.0); MEAN CORPUSCULAR HEMOGLOB 26.4 pg (26.0-34.0); MEAN PLATELET VOLUME 10.9 fL (9.2-13.0); MONOCYTES 9.3 %; NEUTROPHILS 67.2 %; NEUTROPHILS ABSOLUTE 5.78 10/3/uL (2.02-8.40); PLATELET COUNT 279 10/3/uL (150-400); RBC DISTRIBUTION WIDTH 18.2 % (12.0-16.0); RED CELL COUNT 3.37 10/6/uL (4.7-6.1); WHITE BLOOD CELLS 8.6 10/3/uL (4.5-10.5)
[2016-07-24 04:23] LABS: MANUAL DIFF NO %; MEAN CORPUSCULAR VOLUME 86.9 fL (80-100)
[2016-07-24 04:31] LABS: BUN (BLOOD UREA NITROGEN) 6 MG/DL (6-23); CALCIUM, SERUM 8.2 MG/DL (8.5-10.4); CHLORIDE, SERUM 103 MMOL/L (96-112); CO2 (CARBON DIOXIDE) 30 MMOL/L (24-34); CREATININE 0.44 MG/DL (0.70-1.30); GFR AFRICAN AMERICAN 137 ML/MIN (>=60); GFR NON AFRICAN AMERICAN 118 ML/MIN (>=60); GLUCOSE, SERUM 118 MG/DL (60-99); POTASSIUM, SERUM 4.3 MMOL/L (3.5-5.3); SODIUM, SERUM 138 MMOL/L (135-148)
[2016-08-04] MEDS ORDERED: ERY500 PEG (15:51)
[2016-08-04] MEDS ORDERED: MULTIVIT/MIN PEG (15:51)
[2016-08-04] MEDS ORDERED: FESO4UDL PEG (15:52)
[2016-08-04] MEDS ORDERED: FLOMAX4 PEG (15:53)
[2016-08-04] MEDS ORDERED: PROBIOTIC CAPSULE PEG (15:54)
[2016-08-04] MEDS ORDERED: KEPPRAUDL PEG (15:56)
[2016-08-04] MEDS ORDERED: LIQUID TEARS OPH (15:57)
[2016-08-04] MEDS ORDERED: CONSTULOSE PEG (15:57)
[2016-08-04] MEDS ORDERED: MURO1285% OPH (15:58)
[2016-08-04] MEDS ORDERED: SYN075 PEG (15:58)
[2016-08-04] MEDS ORDERED: NEXIUM40 MG PEG (15:59)
[2016-08-04] MEDS ORDERED: XIFAXAN550 MG PEG (15:59)
[2016-08-04] MEDS ORDERED: LIOR10 PEG (15:59)
[2016-08-04] MEDS ORDERED: L20 PEG (16:00)
[2016-08-04] MEDS ORDERED: SUCR PEG (16:00)
[2016-08-04] MEDS ORDERED: MYTAB GAS80 MG PEG (16:01)
[2016-08-04] MEDS ORDERED: GLUCPH PEG (16:02)
[2016-08-04] MEDS ORDERED: PEP20 PEG (16:02)
[2016-08-04] MEDS ORDERED: GLUCOPHAGE1000 MG PEG (16:02)
[2016-08-04] MEDS ORDERED: VITAMIN D400 UNI1 PEG (16:03)
[2016-08-04] MEDS ORDERED: HUMALOG SC (16:05)
[2016-08-04] MEDS ORDERED: ADVIL 100100 MG/5 M PEG (16:06)
[2016-08-04] MEDS ORDERED: NORCO1 TA1 PEG (16:07)
[2016-08-04] MEDS ORDERED: ULTRAM50 PEG (16:07)
== END 2016-07-25 20:15 | DRG 393 ==
LOC: ER 18:57 → CCU 22:20
PROVIDERS: Emergency Medicine; Family Medicine
PROC: 5A1955Z Respiratory Ventilation, Greater than 96 Consecutive Hours (ICD-10-PCS; principal; 2016-07-19)
PROC: 0DJ08ZZ Inspection of Upper Intestinal Tract, Via Natural or Artificial Opening Endoscopic (ICD-10-PCS; 2016-07-20)
PROC: 0T9B30Z Drainage of Bladder with Drainage Device, Percutaneous Approach (ICD-10-PCS; 2016-07-24)
PROC: 0W9G3ZZ Drainage of Peritoneal Cavity, Percutaneous Approach (ICD-10-PCS; 2016-07-24)
DX: K94.21 Gastrostomy hemorrhage (principal); A41.9 Sepsis, unspecified organism; G93.40 Encephalopathy, unspecified; R40.3 Persistent vegetative state; L89.154 Pressure ulcer of sacral region, stage 4; R56.9 Unspecified convulsions; Z99.11 Dependence on respirator [ventilator] status; J96.10 Chronic respiratory failure, unspecified whether with hypoxia or hypercapnia; K92.2 Gastrointestinal hemorrhage, unspecified; D62 Acute posthemorrhagic anemia; N39.0 Urinary tract infection, site not specified; I69.351 Hemiplegia and hemiparesis following cerebral infarction affecting right dominant side; E11.9 Type 2 diabetes mellitus without complications; G40.909 Epilepsy, unspecified, not intractable, without status epilepticus; B96.20 Unspecified Escherichia coli [E. coli] as the cause of diseases classified elsewhere; I25.10 Atherosclerotic heart disease of native coronary artery without angina pectoris; I12.9 Hypertensive chronic kidney disease with stage 1 through stage 4 chronic kidney disease, or unspecified chronic kidney disease; K31.84 Gastroparesis; D50.0 Iron deficiency anemia secondary to blood loss (chronic); E11.43 Type 2 diabetes mellitus with diabetic autonomic (poly)neuropathy; B96.89 Other specified bacterial agents as the cause of diseases classified elsewhere; N18.2 Chronic kidney disease, stage 2 (mild); R33.9 Retention of urine, unspecified; N35.9 Urethral stricture, unspecified; E86.9 Volume depletion, unspecified; I25.2 Old myocardial infarction; Z93.0 Tracheostomy status; Z79.4 Long term (current) use of insulin
CPT/HCPCS: 31720; 36415; 36569-52; 49083; 51102; 71010; 74000; 74176; 77002; 80048; 80053; 81001; 82962; 83605; 83735; 84100; 84145; 85025; 85610; 85730; 86850; 86900; 86901; 86920; 87040; 87077; 87086; 87186; 87641; 93005; 94002; 94003; 94640; 94770; 96374; 96375; 99291; A9270-GY; C1725; C1729; C1769; C1892; C9113; J1170; J1953; J2250; J2370; J2543; J3010; P9016; Q9967

== ENCOUNTER 2016-08-04 16:34 | Inpatient (IN) | payer MEDICARE, OTHER ==
--- NOTE | ~2016-08-04 | HP ---
History And Physical [address] [address] NAME: BARRY GARCIA : 46 STATUS : ADM Bhavana PAT#: [id number] AGE: 65 ADM/REG DATE : 08/04/16 MR#: [id number] REPORT SERV DATE: 08/06/16 DICTATED BY: LUIS F ROLDAN DATE: 08/06/16 REPORT STATUS : Draft TRANSCRIBED BY: MODL DATE: 08/06/16 DATE OF ADMISSION: 08/04/2016 CHIEF COMPLAINT: This is a 65-year-old gentleman who presents from [facility] with profound anemia. HISTORY OF PRESENT ILLNESS: He presented to the emergency room on the ventilator with hemoglobin 6.4 and was admitted for transfusion and workup. REVIEW OF SYSTEMS: No significant change in weight or level of consciousness. No significant fever. No nausea, vomiting, diarrhea, or GI bleeding noted. PAST MEDICAL HISTORY: Significant for a recent admission to this hospital about 3 weeks ago for GI bleeding and transfusion and also had a UTI at that time. He had a stroke in 2012 with chronic ventilator dependence and vegetative state since then and has a PEG tube and tracheostomy, a history of hepatitis C, longstanding hypertension, chronic kidney disease, type 2 diabetes, coronary artery disease with previous NM, hypothyroid, anemia of chronic disease, BPH, gastroparesis, sacral decubitus, seizure disorder, and history of recurrent infections. SOCIAL HISTORY: . Ventilator-dependent at the nursing facility. No alcohol, tobacco, or drugs recently. ALLERGIES: NO KNOWN DRUG ALLERGIES. CURRENT MEDICATIONS: 1. Baclofen 10 mg t.i.d. 2. Artificial Tears twice a day. 3. Vitamin D 400 units daily. 4. Erythromycin 500 mg every 8 hours. 5. Nexium 40 mg daily. 6. Pepcid 20 mg at bedtime. 7. Ferrous sulfate 300 mg b.i.d. 8. Lasix 20 mg daily. 9. [place] 5/325 q.4 h p.r.n. 10.Advil 200 mg q.4 h p.r.n. 11.Sliding-scale insulin. 12.Lactulose 30 mL b.i.d. 13.Keppra 500 mg b.i.d. 14.Synthroid 75 mcg daily. 15.Glucophage 1000 mg daily with 500 at night. 16.Multivitamin daily. 17.Xifaxan 550 mg b.i.d. 18.Simethicone 80 mg daily. 19.Saline eyedrops t.i.d. History And Physical [address] [address] NAME: BARRY GARCIA : 46 STATUS : ADM Bhavana PAT#: [id number] AGE: 65 ADM/REG DATE : 08/04/16 MR#: [id number] REPORT SERV DATE: 08/06/16 DICTATED BY: LUIS F ROLDAN DATE: 08/06/16 REPORT STATUS : Draft TRANSCRIBED BY: MODCecilia DATE: 08/06/16 20.Carafate 1 g b.i.d. 21.Flomax 0.4 mg at bedtime. 22.Tramadol 50 mg every 8 hours p.r.n. 23.Probiotic 1 daily. PHYSICAL EXAMINATION: VITAL SIGNS: BP 106/67, pulse 90 and regular, respirations 12 on the ventilator, saturation 98%. Afebrile. GENERAL: He is minimally responsive to touch or pain but appears in no acute distress. SKIN: Warm and dry with sacral decubitus. HEAD AND NECK: Difficult to assess but face is symmetrical. Mucous membranes are moist. NECK: Tracheostomy site. No signs of infection. Limited range of motion. No palpable mass or JVD. CHEST: With normal breath sounds bilaterally. No wheezing. HEART: Regular rate and rhythm without murmur. Weak peripheral pulses. ABDOMEN: Distended. Apparently nontender. PEG site clean. Bowel sounds hypoactive. AND RECTAL: Done in the emergency room. EXTREMITIES: Contractures present. Trace to 1+ ankle edema. NEUROLOGIC: Flaccid extremities. No pathological reflexes. No tremors. No palpable cervical or axillary lymph nodes. LABORATORY: WBC 7.1, H and H 6.4 and 21.7, and platelets 251. Electrolytes normal. BUN 41, creatinine 0.74, and glucose 94. Hemoccult positive. Liver enzymes in normal range. Chest x-ray shows no acute changes. IMPRESSION: 1. Severe anemia, possibly recurrent GI bleeding. 2. Chronic respiratory failure on a ventilator with a feeding tube and tracheostomy. 3. Stroke 4 years ago with a vegetative state since then. 4. Coronary artery disease. 5. Longstanding hypertension. 6. Diabetes. 7. Hepatitis C. 8. Chronic kidney disease. 9. Seizure disorder. 10.History of recurrent infections. PLAN: 1. GI consultation. 2. Transfusion. 3. Monitor labs. 4. Consider sepsis workup. BP/MODL History And Physical [address] [place]. [address] NAME: BRARY GARCIA : 46 STATUS : ADM Bhavana PAT#: [id number] AGE: 65 ADM/REG DATE : 08/04/16 MR#: [id number] REPORT SERV DATE: 08/06/16 DICTATED BY: LUIS F ROLDAN DATE: 08/06/16 REPORT STATUS : Draft TRANSCRIBED BY: MODL DATE: 08/06/16 Luis F Roldan M.D. / [id number] CC: Luis F Roldan M.D. [facility]
--- NOTE | ~2016-08-04 | DS ---
Discharge Summary [facility] [address] [place]. [address] NAME: BARRY GARCIA : 46 STATUS : DIS IN PAT#: [id number] AGE: 65 ADM/REG DATE : 08/05/16 MR#: [id number] REPORT SERV DATE: 08/22/16 DICTATED BY: LUIS F ROLDAN DATE: 08/21/16 REPORT STATUS : Draft TRANSCRIBED BY: MODCecilia DATE: 08/21/16 Data Collection from hospitalization DISCHARGE DIAGNOSIS(ES): 1. Hypotension. 2. Chronic respiratory failure. 3. Anemia with history of grade 3 esophageal varices and AVMs. 4. History of cerebrovascular accident with chronic vegetative state since 2012. 5. Type 2 diabetes mellitus with history of cerebrovascular accident. 6. Chronic abdominal distention - multifactorial with history of acute gastroparesis. 7. Hypokalemia. 8. Hypomagnesemia. 9. History of urinary retention status post suprapubic catheter. 10.Longstanding hypertension. 11.Chronic kidney disease. 12.Coronary artery disease with history of myocardial infarction. 13.Hypothyroidism. 14.Anemia of chronic disease. 15.Benign prostatic hypertrophy. 16.History of seizure disorder. CONSULTATIONS: Barry Vazquez M.D. PROCEDURES PERFORMED: Colonoscopy, 08/09/2016. MEDICATIONS: Artificial Tears as instructed, Lioresal 10 mg per PEG tube three times a day, vitamin D 400 units per PEG tube daily, erythromycin 500 mg per PEG tube every 8 hours, ferrous sulfate 5 mL per PEG tube twice a day, Lasix 20 mg per PEG tube daily, Synthroid 75 mcg per PEG tube daily, multivitamin with minerals one tablet per PEG tube daily, Nexium 40 mg per PEG tube daily, Xifaxan 550 mg per PEG tube twice a day, Mytab Gas 80 mg per PEG tube daily, Carafate 1 g twice a day, Flomax 0.4 mg per PEG tube at bedtime, probiotic one capsule per PEG tube daily, Keppra 500 mg per PEG tube twice a day, Constulose 30 mL per PEG tube twice a day, Tammy one drop in both eyes three times a day, Glucophage 500 mg per PEG tube at bedtime and 1000 mg per PEG tube daily, Pepcid 20 mg per PEG tube at bedtime, Humalog as instructed, Advil 200 mg per PEG tube every four hours as needed, [place] 5/325 one tablet per PEG tube every four hours as needed, Ultram 50 mg per PEG tube every 8 hours as needed, KCl 20 mEq per PEG tube daily, and Mag-Ox 500 mg per PEG tube daily. CONDITION AT DISCHARGE: Stable. DISPOSITION: The patient was discharged to [facility] on tube feedings with activities as instructed. HOSPITAL COURSE: This is a 65-year-old man who presented from [facility] with profound anemia. He presented to the emergency room on the ventilator with a hemoglobin of 6.4. He was admitted to the hospital at this time for further evaluation and treatment. Discharge Summary [facility] [address] [facility] [place]. [address] NAME: BARRY GARCIA : 46 STATUS : DIS IN PAT#: [id number] AGE: 65 ADM/REG DATE : 08/05/16 MR#: [id number] REPORT SERV DATE: 08/22/16 DICTATED BY: LUIS F ROLDAN DATE: 08/21/16 REPORT STATUS : Draft TRANSCRIBED BY: RASTA DATE: 08/21/16 Upon admission, his electrolytes were normal. Liver enzymes were in the normal range. Chest x-ray showed no acute changes. He was felt to have severe anemia with possibly recurrent GI bleeding. H and H were 6.4 and 21.7. A GI consult was requested. He was going to be transfused. We would consider a sepsis workup. He was seen by Dr. Barry Vazquez. The patient had undergone an EGD in 03/2016 that had shown grade 3 varices on that exam. He had undergone an upper endoscopy from his last hospitalization. Apparently, he had grade 3 varices. His upper GI bleeding appeared to have resolved. He presented at this time with anemia. He has had no gross bleeding. Flushes done on the PEG tube showed no aspiration of blood. His stool appeared to be brown liquid and soft in the rectal bag. He is in a chronic vegetative state. CT scan of the abdomen and pelvis on 07/23/2016 had shown pleural effusions and ascites suggesting cirrhosis, skeletal structures with osteoporotic changes, and coronary artery calcifications. He did respond to transfusion. He had received two units of blood. Currently, there was no gross blood noted in the PEG tube or in the rectal bag. Proton pump inhibitor was continued. He would be transfused as needed. We would monitor his H and H. It was felt that we would need input from his family if they really wanted to pursue a colonoscopy. Given his overall state, we would be hesitant to put him through that. Consideration for comfort measures should be considered. The patient was at his minimal baseline responsiveness. On the , a discussion was held with the patient's conservator. She wanted a colonoscopy performed after a discussion with the patient's . There was liquid green output from the rectal tube. There is a suprapubic catheter in place. GoLYTELY was going to be given. On 08/08/2016, no colonoscopy was performed secondary to the bowel prep still going on. Rectal tube had clear light yellow output. There was no blood seen. Mag citrate was being given. Tube feedings were held. On 08/09/2016, the patient was taken to the endoscopic suite by Dr. Gilmar Gomez where he underwent a colonoscopy. There was significant looping of the colon. There was congested mucosa in the entire examined colon. The examination was otherwise normal on direct and retroflexion views. Ongoing anemia was likely multifactorial. We would discontinue the IV fluids once his tube feedings were begun. He did have some hyponatremia. Discharge planning was performed. He did have an episode of hypotension. On 08/11/2016, the patient's hypotension had resolved. He had been off pressors for greater than 24 hours, and KUB was performed. H and H remained stable. KCl was added to his regimen. Magnesium supplementation had been given. Mag-Ox had been added. There was some PEG tube dysfunction. The PEG tube was flushed without difficulty. The Split Gauze was removed. There was very minimal drainage on the gauze. His abdomen was distended which is chronic, but he now had extremely hypoactive bowel sounds. The PEG tube is going to be used. His KUB was negative. There was no need to change also PEG tube at this time. Discharge instructions were given. He was evaluated by Physical Therapy. Due to his improved and stable condition, he was discharged to [facility] with the above-stated instructions. Information collected by: Molly Duarte I submit the above information as my discharge summary. TG/MODL Discharge Summary [facility] [address] [place]. [address] NAME: BARRY GARCIA : 46 STATUS : DIS IN PAT#: [id number] AGE: 65 ADM/REG DATE : 08/05/16 MR#: [id number] REPORT SERV DATE: 08/22/16 DICTATED BY: LUIS F ROLDAN DATE: 08/21/16 REPORT STATUS : Draft TRANSCRIBED BY: RASTA DATE: 08/21/16 Luis F Roldan M.D. / [id number] CC: Gisela Snell M.D. [facility]
--- NOTE | ~2016-08-04 | EGD ---
EGD REPORT [facility] [address] [place]. [address] NAME: BARRY GARCIA : 46 STATUS : ADM IN PAT#: [id number] AGE: 65 ADM/REG DATE : 08/05/16 MR#: [id number] REPORT SERV DATE: 08/09/16 DICTATED BY: GILMAR WHITFIELD DATE: 08/09/16 REPORT STATUS : Draft TRANSCRIBED BY: [employer] DATE: 08/09/16 Endoscopy Center Patient Name: Barry Garcia Date of : 1950 Attending MD: GILMAR WHITFIELD MD Procedure Date No Time: 08/09/2016 Procedure: Colonoscopy Indications: Heme positive stool, Iron deficiency anemia secondary to chronic blood loss Medicines: Monitored Anesthesia Care Complications: No immediate complications. Estimated blood loss: None. Procedure: Pre-Anesthesia Assessment: - ASA Grade Assessment: IV - A patient with severe systemic disease that is a constant threat to life. After I obtained informed consent, the scope was passed under direct vision. Throughout the procedure, the patient's blood pressure, pulse, and oxygen saturations were monitored continuously. The CF [id number] was introduced through the anus and advanced to the ileocecal valve. The colonoscopy was technically difficult and complex due to significant looping and the patient's body habitus. The patient tolerated the procedure well. The quality of the bowel preparation was fair. Findings: The perianal and digital rectal examinations were normal. Pertinent negatives include no palpable rectal lesions. The sigmoid colon and transverse colon revealed excessive looping. An area of congested mucosa was found in the entire colon. The exam was otherwise without abnormality on direct and retroflexion views. There is no endoscopic evidence of bleeding, inflammation, mass, stricture or ulcerations in the entire colon. Impression: - There was significant looping of the colon. - Congested mucosa in the entire examined colon. - The examination was otherwise normal on direct and retroflexion views. - Ongoing anemia likely multifactorial Recommendation: - Repeat colonoscopy is not recommended for retreatment. - Would not recommend further endoscopy in the future unless OVERT bleeding EGD REPORT [facility] [address] [place]. [address] NAME: BARRY GARCIA : 46 STATUS : ADM IN [facility]#: [id number] AGE: 65 ADM/REG DATE : 08/05/16 MR#: [id number] REPORT SERV DATE: 08/09/16 DICTATED BY: GILMAR WHITFIELD DATE: 08/09/16 REPORT STATUS : Draft TRANSCRIBED BY: [employer] DATE: 08/09/16 Procedure Code(s): --- Professional --- 67130, Colonoscopy, flexible, proximal to splenic flexure; diagnostic, with or without collection of specimen(s) by brushing or washing, with or without colon decompression (separate procedure) Diagnosis Code(s): --- Professional --- K63.89, Other specified diseases of intestine R19.5, Other fecal abnormalities D50.0, Iron deficiency anemia secondary to blood loss (chronic) CPT copyright 2013 [employer]. All rights reserved. The codes documented in this report are preliminary and upon computer language coder review may be revised to meet current compliance requirements. Gilmar Whitfield MD GILMAR WHITFIELD MD 08/09/2016 12:40 PM This report has been signed electronically. Number of Addenda: 0 Note Initiated On: 08/09/2016 11:33 AM Scope Withdrawal Time 0 hours 0 minutes 0 seconds [address] [place] [address]
--- NOTE | ~2016-08-04 | CN ---
Consultation Report [facility] [address] [facility] [place]. [address] NAME: BARRY GARCIA : 46 STATUS : ADM IN [facility]#: [id number] AGE: 65 ADM/REG DATE : 08/05/16 MR#: [id number] REPORT SERV DATE: 08/06/16 DICTATED BY: BARRY MACEDO DATE: 08/06/16 REPORT STATUS : Draft TRANSCRIBED BY: MODL DATE: 08/06/16 GI CONSULTATION DATE OF CONSULTATION: REASON FOR CONSULTATION: For anemia. HISTORY OF PRESENT ILLNESS: Mr. Garcia is a 65-year-old, male, who was seen by our hospitalist service on 07/20/2016 by Berhane Rivera, our nurse practitioner, and also by Dr. Gilmar Gomez. The patient at that time, had heme-positive stool anemia. He has had an EGD on 03/28/2016 showing grade 3 varices on that exam. He underwent an upper endoscopy, it appears from his last hospitalization. I could not find a report on the chart, but apparently had grade 3 varices. This is from the discharge summary from most recent hospitalization. His upper GI bleeding appeared to have resolved. He has come back in with anemia. His hemoglobin was found to be 6. He has had no gross bleeding. Flushes done on the PEG tube showed no aspiration of blood. His stool appears brown, liquid and soft in his rectal bag. He is in chronic vegetative state, can give no history, but it appears that the reason he was admitted was for the severe anemia. The patient of course, can give no history. PAST MEDICAL HISTORY: Includes, CVA in 2012 and he is in a chronic vegetative state. He has had tracheostomy placed and a PEG tube placed. He has a history of hepatitis C, hypertension, chronic renal insufficiency, diabetes, coronary artery disease, myocardial infarction, hypothyroid, anemia, BPH, gastroparesis, UTI, sacral decubitus and seizure disorder. FAMILY HISTORY: Noncontributory. REVIEW OF SYSTEMS: Not obtainable from the patient. PAST SURGICAL HISTORY: Cholecystectomy, trach and PEG. SOCIAL HISTORY: Lives at [facility]. No alcohol, drugs, or tobacco noted in the chart. MEDICATIONS: Home medications include artificial tears, baclofen, vitamin D, erythromycin, Nexium, Pepcid, iron sulfate, Lasix, hydrocodone, ibuprofen, insulin, lactulose, Keppra, levothyroxine, metformin, multivitamins, Xifaxan, simethicone, sucralfate, Flomax, Ultram, and probiotics. ALLERGIES: NO KNOWN DRUG ALLERGIES. PHYSICAL EXAMINATION: VITAL SIGNS: Blood pressure 116/65, temperature is 98.5, pulse 74, respirations 14. Consultation Report [address] [place]. [address] NAME: BARRY GARCIA : 46 STATUS : ADM IN [facility]#: [id number] AGE: 65 ADM/REG DATE : 08/05/16 MR#: [id number] REPORT SERV DATE: 08/06/16 DICTATED BY: BARRY MACEDO DATE: 08/06/16 REPORT STATUS : Draft TRANSCRIBED BY: RASTA DATE: 08/06/16 HEENT: He is trached. Eyes, partially closed. NECK: Supple. No JVD, but does have a trach in place. HEART: Regular. LUNGS: Clear anteriorly. ABDOMEN: Soft. He has some mild to moderate distention. Bowel sounds are present. PEG tube in place. EXTREMITIES: No cyanosis or clubbing. LABORATORY DATA: CT done on 07/23 of abdomen and pelvis showed pleural effusions, ascites suggesting cirrhosis, skeletal structures with osteoporotic changes, coronary artery calcifications. KUB done on 08/06 shows no acute abnormalities. Sodium 152, potassium 3.9, chloride 119, CO2 is 22, BUN 17, creatinine 0.34. Total bilirubin on the th was 0.4, AST was 86, ALT and alkaline phosphatase were normal. White count 7.2, hemoglobin 9, hematocrit 28, platelet count 308. Hemoglobin on the th was 7. INR 1.3. IMPRESSION: 1. Severe anemia with hemoglobin of 7, which has responded to transfusion. He has received 2 units of blood. 2. History of heme-positive stool. Currently no gross blood noted in the PEG tube or in the rectal bag. 3. Cerebrovascular accident with chronic vegetative state, status post trach and PEG tube placement. 4. Hepatitis C. 5. Cirrhosis, based on CT findings and ascites. 6. Hypothyroid. RECOMMENDATION: 1. Monitor H and H. 2. Continue proton pump inhibitor. 3. Transfuse if needed. 4. Need input from family if they really want to pursue colonoscopy. Given his overall state, we would be hesitant to put him through that. Consideration for discomfort measures should be considered. We will follow with you. ARMOND/RASTA Barry Macedo M.D. / [id number] CC: Consultation Report [address] [address] NAME: BARRY GARCIA : 46 STATUS : ADM IN PAT#: [id number] AGE: 65 ADM/REG DATE : 08/05/16 MR#: [id number] REPORT SERV DATE: 08/06/16 DICTATED BY: BARRY MACEDO DATE: 08/06/16 REPORT STATUS : Draft TRANSCRIBED BY: RASTA DATE: 08/06/16 Luis F Roldan M.D.
[2016-08-04 15:56] LABS: BASOPHILS 1.3 %; EOSINOPHILS 14.5 %; EOSINOPHILS ABSOLUTE 1.09 10/3/uL (0.0-0.53); ER CBC TAT 0 Hrs 03 Mins; IMMATURE GRANULOCYTES 0.4 %; IMMATURE GRANULOCYTES ABSOLUTE 0.03 10/3/uL (0.0-0.11); LYMPHOCYTES 14.1 %; LYMPHOCYTES ABSOLUTE 1.06 10/3/uL (0.67-4.30); MEAN CORPUS HGB CONC 30.6 g/dL (32.0-36.0); MEAN CORPUSCULAR HEMOGLOB 26.4 pg (26.0-34.0); MEAN CORPUSCULAR VOLUME 86.4 fL (80-100); MONOCYTES 8.1 %; MONOCYTES ABSOLUTE 0.61 10/3/uL (0.21-1.20); NEUTROPHILS 61.6 %; NEUTROPHILS ABSOLUTE 4.64 10/3/uL (2.02-8.40); PLATELET COUNT 282 10/3/uL (150-400); WHITE BLOOD CELLS 7.5 10/3/uL (4.5-10.5)
[2016-08-04 16:01] LABS: HEMATOCRIT 22.9 % (40.0-51.0); MANUAL DIFF NO %; RED CELL COUNT 2.65 10/6/uL (4.7-6.1)
[2016-08-04 16:03] LABS: INTERNATIONAL NORMAL RATI 1.3 UNITS (-); PROTIME (NOT ORD) 16.2 SEC (12.0-14.5)
[2016-08-04 16:10] LABS: A/G RATIO 0.3 (0.7-1.9); ALBUMIN 1.8 G/DL (3.5-5.0); CHLORIDE, SERUM 112 MMOL/L (96-112); CO2 (CARBON DIOXIDE) 30 MMOL/L (24-34); CREATININE 0.77 MG/DL (0.70-1.30); GFR AFRICAN AMERICAN 109 ML/MIN (>=60); GFR NON AFRICAN AMERICAN 94 ML/MIN (>=60); GLOBULIN 5.9 G/DL (2.5-4.1); GLUCOSE, SERUM 117 MG/DL (60-99); POTASSIUM, SERUM 4.1 MMOL/L (3.5-5.3); SGOT(AST) 86 U/L (5-40); SGPT(ALT) 19 U/L (5-65); TOTAL PROTEIN 7.7 G/DL (6.0-8.5)
[2016-08-04 16:11] LABS: ALKALINE PHOSPHATASE 110 U/L (45-117); BUN (BLOOD UREA NITROGEN) 42 MG/DL (6-23); CALCIUM, SERUM 9.5 MG/DL (8.5-10.4); SODIUM, SERUM 148 MMOL/L (135-148); TOTAL BILIRUBIN 0.4 MG/DL (0-1.2)
[2016-08-04 16:18] LABS: ANISOCYTOSIS 1+ (5-10/OIF) (0-5/OIF); BAND NEUTROPHILS 14 %; BASOPHILS 1 %; BASOPHILS ABSOLUTE (CALC) 0.08 10/3/uL (0.0-0.16); EOSINOPHILS 4 %; ER DIFF TAT 0 Hrs 25 Mins; HYPOCHROMIA 1+ (3-10/OIF) (0-2/OIF); LYMPHOCYTES 6 %; LYMPHOCYTES ABSOLUTE (CALC) 0.45 10/3/uL (0.67-4.30); MONOCYTES 4 %; NEUTROPHILS ABSOLUTE (CALC) 6.38 10/3/uL (2.02-8.40); PLATELET ESTIMATE ADQ (ADEQUATE); SEGMENTED NEUTROPHIL (0) 71 %; TOTAL NUCLEATED CELLS 100
[2016-08-04 16:19] LABS: TARGET CELLS FEW (3-10/OIF) (0-1/OIF)
[~2016-08-04 16:34] MED LIST changes: +ADVIL 100100 MG/5 M PEG; +D MANNOSE PEG; +HUMALOG SC; +IBU400 PEG; +MULTIVIT/MIN PEG; +PROBIOTIC CAPSULE PEG; +SYN075 PEG; +TEARS PURE OPH; +ULTRAM50 PEG; +VITAMIN D400 UNI1 PEG
[2016-08-05 19:35] LABS: BASOPHILS 0.9 %; BASOPHILS ABSOLUTE 0.07 10/3/uL (0.0-0.16); EOSINOPHILS 17.2 %; EOSINOPHILS ABSOLUTE 1.27 10/3/uL (0.0-0.53); IMMATURE GRANULOCYTES 0.4 %; IMMATURE GRANULOCYTES ABSOLUTE 0.03 10/3/uL (0.0-0.11); LYMPHOCYTES 12.9 %; LYMPHOCYTES ABSOLUTE 0.95 10/3/uL (0.67-4.30); MEAN CORPUSCULAR HEMOGLOB 27.2 pg (26.0-34.0); MEAN CORPUSCULAR VOLUME 85.1 fL (80-100); MONOCYTES ABSOLUTE 0.37 10/3/uL (0.21-1.20); NEUTROPHILS 63.6 %; NEUTROPHILS ABSOLUTE 4.68 10/3/uL (2.02-8.40); PLATELET COUNT 291 10/3/uL (150-400); RBC DISTRIBUTION WIDTH 16.9 % (12.0-16.0); WHITE BLOOD CELLS 7.4 10/3/uL (4.5-10.5)
[2016-08-05 19:36] LABS: HEMATOCRIT 27.5 % (40.0-51.0); HEMOGLOBIN 8.8 g/dL (13.6-17.8); MANUAL DIFF NO %; RED CELL COUNT 3.23 10/6/uL (4.7-6.1)
[2016-08-06 05:15] LABS: BASOPHILS 1.1 %; BASOPHILS ABSOLUTE 0.08 10/3/uL (0.0-0.16); EOSINOPHILS 17.2 %; EOSINOPHILS ABSOLUTE 1.24 10/3/uL (0.0-0.53); HEMATOCRIT 28.1 % (40.0-51.0); IMMATURE GRANULOCYTES 0.4 %; IMMATURE GRANULOCYTES ABSOLUTE 0.03 10/3/uL (0.0-0.11); LYMPHOCYTES 9.7 %; MEAN CORPUSCULAR HEMOGLOB 27.4 pg (26.0-34.0); MEAN CORPUSCULAR VOLUME 85.4 fL (80-100); MEAN PLATELET VOLUME 10.9 fL (9.2-13.0); MONOCYTES ABSOLUTE 0.43 10/3/uL (0.21-1.20); NEUTROPHILS 65.6 %; NEUTROPHILS ABSOLUTE 4.71 10/3/uL (2.02-8.40); PLATELET COUNT 308 10/3/uL (150-400); RBC DISTRIBUTION WIDTH 17.3 % (12.0-16.0); RED CELL COUNT 3.29 10/6/uL (4.7-6.1); WHITE BLOOD CELLS 7.2 10/3/uL (4.5-10.5)
[2016-08-06 05:19] LABS: MANUAL DIFF NO %
[2016-08-06 05:24] LABS: BUN (BLOOD UREA NITROGEN) 17 MG/DL (6-23); CALCIUM, SERUM 8.2 MG/DL (8.5-10.4); CHLORIDE, SERUM 119 MMOL/L (96-112); CO2 (CARBON DIOXIDE) 22 MMOL/L (24-34); CREATININE 0.34 MG/DL (0.70-1.30); GFR AFRICAN AMERICAN 152 ML/MIN (>=60); GFR NON AFRICAN AMERICAN 131 ML/MIN (>=60); GLUCOSE, SERUM 87 MG/DL (60-99); POTASSIUM, SERUM 3.3 MMOL/L (3.5-5.3); SODIUM, SERUM 152 MMOL/L (135-148)
[2016-08-07 05:28] LABS: BASOPHILS 0.8 %; BASOPHILS ABSOLUTE 0.06 10/3/uL (0.0-0.16); EOSINOPHILS 14.2 %; EOSINOPHILS ABSOLUTE 1.04 10/3/uL (0.0-0.53); HEMATOCRIT 28.6 % (40.0-51.0); HEMOGLOBIN 9.1 g/dL (13.6-17.8); IMMATURE GRANULOCYTES 0.3 %; IMMATURE GRANULOCYTES ABSOLUTE 0.02 10/3/uL (0.0-0.11); LYMPHOCYTES 11.3 %; LYMPHOCYTES ABSOLUTE 0.83 10/3/uL (0.67-4.30); MEAN CORPUS HGB CONC 31.8 g/dL (32.0-36.0); MEAN CORPUSCULAR HEMOGLOB 27.4 pg (26.0-34.0); MEAN CORPUSCULAR VOLUME 86.1 fL (80-100); MEAN PLATELET VOLUME 11.3 fL (9.2-13.0); MONOCYTES 4.4 %; MONOCYTES ABSOLUTE 0.32 10/3/uL (0.21-1.20); NEUTROPHILS ABSOLUTE 5.05 10/3/uL (2.02-8.40); PLATELET COUNT 331 10/3/uL (150-400); RBC DISTRIBUTION WIDTH 17.6 % (12.0-16.0); RED CELL COUNT 3.32 10/6/uL (4.7-6.1); WHITE BLOOD CELLS 7.3 10/3/uL (4.5-10.5)
[2016-08-07 05:30] LABS: MANUAL DIFF NO %
[2016-08-07 05:33] LABS: CALCIUM, SERUM 8.2 MG/DL (8.5-10.4); CHLORIDE, SERUM 121 MMOL/L (96-112); CO2 (CARBON DIOXIDE) 24 MMOL/L (24-34); CREATININE 0.42 MG/DL (0.70-1.30); GFR AFRICAN AMERICAN 140 ML/MIN (>=60); GFR NON AFRICAN AMERICAN 120 ML/MIN (>=60); GLUCOSE, SERUM 85 MG/DL (60-99); POTASSIUM, SERUM 3.4 MMOL/L (3.5-5.3); SODIUM, SERUM 153 MMOL/L (135-148)
[2016-08-07 05:36] LABS: BUN (BLOOD UREA NITROGEN) 12 MG/DL (6-23)
[2016-08-08 05:17] LABS: INTERNATIONAL NORMAL RATI 1.4 UNITS (-); PROTIME (NOT ORD) 17.4 SEC (12.0-14.5)
[2016-08-08 05:27] LABS: BUN (BLOOD UREA NITROGEN) 9 MG/DL (6-23); CALCIUM, SERUM 8.2 MG/DL (8.5-10.4); CHLORIDE, SERUM 121 MMOL/L (96-112); CO2 (CARBON DIOXIDE) 21 MMOL/L (24-34); CREATININE 0.43 MG/DL (0.70-1.30); GFR AFRICAN AMERICAN 138 ML/MIN (>=60); GFR NON AFRICAN AMERICAN 119 ML/MIN (>=60); GLUCOSE, SERUM 76 MG/DL (60-99); POTASSIUM, SERUM 4.1 MMOL/L (3.5-5.3); SODIUM, SERUM 152 MMOL/L (135-148)
[2016-08-08 06:06] LABS: BASOPHILS 1.4 %; BASOPHILS ABSOLUTE 0.09 10/3/uL (0.0-0.16); EOSINOPHILS 19.2 %; EOSINOPHILS ABSOLUTE 1.27 10/3/uL (0.0-0.53); HEMATOCRIT 27.9 % (40.0-51.0); HEMOGLOBIN 8.6 g/dL (13.6-17.8); IMMATURE GRANULOCYTES 0.5 %; IMMATURE GRANULOCYTES ABSOLUTE 0.03 10/3/uL (0.0-0.11); LYMPHOCYTES 10.9 %; LYMPHOCYTES ABSOLUTE 0.72 10/3/uL (0.67-4.30); MEAN CORPUS HGB CONC 30.8 g/dL (32.0-36.0); MEAN CORPUSCULAR VOLUME 87.7 fL (80-100); MEAN PLATELET VOLUME 12.1 fL (9.2-13.0); MONOCYTES 6.8 %; MONOCYTES ABSOLUTE 0.45 10/3/uL (0.21-1.20); NEUTROPHILS 61.2 %; NEUTROPHILS ABSOLUTE 4.04 10/3/uL (2.02-8.40); NUCLEATED RED BLOOD CELLS 0.3 /100WBC (0-0); PLATELET COUNT 250 10/3/uL (150-400); RED CELL COUNT 3.18 10/6/uL (4.7-6.1); WHITE BLOOD CELLS 6.6 10/3/uL (4.5-10.5)
[2016-08-08 06:20] LABS: MANUAL DIFF NO %
[2016-08-09 05:26] LABS: BUN (BLOOD UREA NITROGEN) 7 MG/DL (6-23); CALCIUM, SERUM 7.8 MG/DL (8.5-10.4); CHLORIDE, SERUM 120 MMOL/L (96-112); CO2 (CARBON DIOXIDE) 18 MMOL/L (24-34); CREATININE 0.46 MG/DL (0.70-1.30); GFR AFRICAN AMERICAN 134 ML/MIN (>=60); GFR NON AFRICAN AMERICAN 116 ML/MIN (>=60); SODIUM, SERUM 149 MMOL/L (135-148)
[2016-08-09 05:29] LABS: GLUCOSE, SERUM 114 MG/DL (60-99)
[2016-08-09 06:01] LABS: BASOPHILS 0.9 %; BASOPHILS ABSOLUTE 0.06 10/3/uL (0.0-0.16); EOSINOPHILS ABSOLUTE 0.92 10/3/uL (0.0-0.53); HEMATOCRIT 29.2 % (40.0-51.0); HEMOGLOBIN 9.2 g/dL (13.6-17.8); IMMATURE GRANULOCYTES 0.3 %; IMMATURE GRANULOCYTES ABSOLUTE 0.02 10/3/uL (0.0-0.11); LYMPHOCYTES 15.8 %; LYMPHOCYTES ABSOLUTE 1.04 10/3/uL (0.67-4.30); MEAN CORPUS HGB CONC 31.5 g/dL (32.0-36.0); MEAN CORPUSCULAR HEMOGLOB 27.4 pg (26.0-34.0); MEAN CORPUSCULAR VOLUME 86.9 fL (80-100); MEAN PLATELET VOLUME 10.4 fL (9.2-13.0); MONOCYTES 7.2 %; MONOCYTES ABSOLUTE 0.47 10/3/uL (0.21-1.20); NEUTROPHILS 61.8 %; NEUTROPHILS ABSOLUTE 4.06 10/3/uL (2.02-8.40); PLATELET COUNT 322 10/3/uL (150-400); RBC DISTRIBUTION WIDTH 18.4 % (12.0-16.0); RED CELL COUNT 3.36 10/6/uL (4.7-6.1); WHITE BLOOD CELLS 6.6 10/3/uL (4.5-10.5)
[2016-08-09 06:02] LABS: MANUAL DIFF NO %
[2016-08-09 11:49] LABS: PHOSPHORUS, SERUM 2.7 MG/DL (2.5-4.5)
[2016-08-10 08:06] LABS: BASOPHILS 0.5 %; BASOPHILS ABSOLUTE 0.05 10/3/uL (0.0-0.16); EOSINOPHILS 11.4 %; HEMATOCRIT 30.6 % (40.0-51.0); HEMOGLOBIN 9.7 g/dL (13.6-17.8); IMMATURE GRANULOCYTES 0.3 %; IMMATURE GRANULOCYTES ABSOLUTE 0.03 10/3/uL (0.0-0.11); LYMPHOCYTES 9.6 %; LYMPHOCYTES ABSOLUTE 0.93 10/3/uL (0.67-4.30); MEAN CORPUS HGB CONC 31.7 g/dL (32.0-36.0); MEAN CORPUSCULAR HEMOGLOB 27.2 pg (26.0-34.0); MEAN CORPUSCULAR VOLUME 85.7 fL (80-100); MEAN PLATELET VOLUME 10.5 fL (9.2-13.0); MONOCYTES 6.2 %; NEUTROPHILS ABSOLUTE 6.94 10/3/uL (2.02-8.40); PLATELET COUNT 383 10/3/uL (150-400); RBC DISTRIBUTION WIDTH 17.8 % (12.0-16.0); RED CELL COUNT 3.57 10/6/uL (4.7-6.1)
[2016-08-10 08:08] LABS: MANUAL DIFF NO %; WHITE BLOOD CELLS 9.7 10/3/uL (4.5-10.5)
[2016-08-10 08:17] LABS: BUN (BLOOD UREA NITROGEN) 6 MG/DL (6-23); CALCIUM, SERUM 7.9 MG/DL (8.5-10.4); CHLORIDE, SERUM 114 MMOL/L (96-112); CREATININE 0.55 MG/DL (0.70-1.30); GFR AFRICAN AMERICAN 125 ML/MIN (>=60); GFR NON AFRICAN AMERICAN 108 ML/MIN (>=60); SODIUM, SERUM 147 MMOL/L (135-148)
[2016-08-10 08:19] LABS: CO2 (CARBON DIOXIDE) 23 MMOL/L (24-34); GLUCOSE, SERUM 157 MG/DL (60-99); POTASSIUM, SERUM 3.1 MMOL/L (3.5-5.3)
[2016-08-10 09:04] LABS: ALBUMIN 1.7 G/DL (3.5-5.0); ALKALINE PHOSPHATASE 131 U/L (45-117); DIRECT BILIRUBIN 0.3 MG/DL (0.0-0.4); INDIRECT BILIRUBIN(NOT ORDER) 0.2 MG/DL (0.1-0.9); PHOSPHORUS, SERUM 2.3 MG/DL (2.5-4.5); SGOT(AST) 82 U/L (5-40); SGPT(ALT) 19 U/L (5-65); TOTAL BILIRUBIN 0.5 MG/DL (0-1.2); TOTAL PROTEIN 6.8 G/DL (6.0-8.5)
[2016-08-11 04:24] LABS: BASOPHILS 0.5 %; BASOPHILS ABSOLUTE 0.03 10/3/uL (0.0-0.16); EOSINOPHILS 14.5 %; EOSINOPHILS ABSOLUTE 0.86 10/3/uL (0.0-0.53); HEMATOCRIT 30.7 % (40.0-51.0); HEMOGLOBIN 9.7 g/dL (13.6-17.8); IMMATURE GRANULOCYTES 0.3 %; IMMATURE GRANULOCYTES ABSOLUTE 0.02 10/3/uL (0.0-0.11); LYMPHOCYTES 14.7 %; LYMPHOCYTES ABSOLUTE 0.87 10/3/uL (0.67-4.30); MEAN CORPUS HGB CONC 31.6 g/dL (32.0-36.0); MEAN CORPUSCULAR HEMOGLOB 27.2 pg (26.0-34.0); MEAN PLATELET VOLUME 10.4 fL (9.2-13.0); MONOCYTES ABSOLUTE 0.71 10/3/uL (0.21-1.20); NEUTROPHILS ABSOLUTE 3.44 10/3/uL (2.02-8.40); PLATELET COUNT 271 10/3/uL (150-400); RBC DISTRIBUTION WIDTH 17.8 % (12.0-16.0); RED CELL COUNT 3.57 10/6/uL (4.7-6.1); WHITE BLOOD CELLS 5.9 10/3/uL (4.5-10.5)
[2016-08-11 04:28] LABS: MANUAL DIFF NO %
[2016-08-11 04:40] LABS: BUN (BLOOD UREA NITROGEN) 7 MG/DL (6-23); CALCIUM, SERUM 7.9 MG/DL (8.5-10.4); CHLORIDE, SERUM 113 MMOL/L (96-112); CO2 (CARBON DIOXIDE) 23 MMOL/L (24-34); CREATININE 0.41 MG/DL (0.70-1.30); GFR AFRICAN AMERICAN 141 ML/MIN (>=60); GFR NON AFRICAN AMERICAN 122 ML/MIN (>=60); PHOSPHORUS, SERUM 2.7 MG/DL (2.5-4.5); POTASSIUM, SERUM 3.6 MMOL/L (3.5-5.3); SODIUM, SERUM 144 MMOL/L (135-148)
[2016-08-11 04:41] LABS: GLUCOSE, SERUM 110 MG/DL (60-99)
== END 2016-08-11 17:14 | DRG 378 ==
LOC: ER 16:34 → IMCU 18:23
PROVIDERS: Emergency Medicine; Family Medicine; Internal Medicine Gastroenterology; Nurse Practitioner Family
PROC: 0DJD8ZZ Inspection of Lower Intestinal Tract, Via Natural or Artificial Opening Endoscopic (ICD-10-PCS; principal; 2016-08-09 10:00)
DX: K92.2 Gastrointestinal hemorrhage, unspecified (principal); R40.3 Persistent vegetative state; J96.10 Chronic respiratory failure, unspecified whether with hypoxia or hypercapnia; E87.0 Hyperosmolality and hypernatremia; D64.9 Anemia, unspecified; E11.22 Type 2 diabetes mellitus with diabetic chronic kidney disease; Z99.81 Dependence on supplemental oxygen; B19.20 Unspecified viral hepatitis C without hepatic coma; I12.9 Hypertensive chronic kidney disease with stage 1 through stage 4 chronic kidney disease, or unspecified chronic kidney disease; N18.9 Chronic kidney disease, unspecified
CPT/HCPCS: 31720; 36415; 36430; 71010; 74000; 80048; 80053; 80069; 80076; 82140; 82962; 83735; 84100; 84132; 85025; 85610; 86641; 86850; 86900; 86901; 86920; 87641; 94002; 94003; 97162-GP; 99285; A9270-GY; C9113; G8978-CN-GP; G8979-CN-GP; G8980-CN-GP; J1940; J1953; J2370; J3475; P9016

== ENCOUNTER 2016-08-15 19:56 | Inpatient (IN) | payer MEDICARE, OTHER ==
--- NOTE | ~2016-08-15 | OP ---
Record Of Operation [facility] [address] [place]. [address] NAME: BARRY GARCIA : 46 STATUS : ADM IN PAT#: [id number] AGE: 65 ADM/REG DATE : 08/15/16 MR#: [id number] REPORT SERV DATE: 08/16/16 DICTATED BY: BART RODRIGUEZ DATE: 08/16/16 REPORT STATUS : Draft TRANSCRIBED BY: MODL DATE: 08/16/16 DATE OF PROCEDURE: 08/16/2016 INDICATION FOR THE PROCEDURE: PEG tube has come out, has a Olivas catheter, needs the PEG tube replaced. PROCEDURE: The procedure was performed at the bedside. The Olivas catheter that was there was removed by deflating the balloon of the Olivas catheter. It was then removed. This was in the PEG site opening. Through this opening, then a 28-Swiss balloon replacement PEG catheter was placed in and the balloon was insufflated with 10 mL of water. Everything appeared well placed. At this point, I recommend to restart feedings and medications via the tube. SAMRA/RASTA Omkar Rodriguez M.D. / [id number] CC: Luis F Roldan M.D. UNKNOWN
--- NOTE | ~2016-08-15 | CN ---
Consultation Report [facility] [address] [place]. [address] NAME: BARRY GARCIA : 46 STATUS : ADM IN PAT#: [id number] AGE: 65 ADM/REG DATE : 08/15/16 MR#: [id number] REPORT SERV DATE: 08/16/16 DICTATED BY: SHARITA KEARNEY DATE: 08/16/16 REPORT STATUS : Draft TRANSCRIBED BY: MODL DATE: 08/16/16 CONSULTATION DATE OF CONSULTATION: Thank you for the opportunity to consult on this patient. This is one of multiple hospitalizations for Mr. Garcia. He is ventilator dependent because of progressive respiratory failure associated with his cerebrovascular disease and poor mental status. He has recurrent GI problems, has been experiencing problems with anemia, ileus, and abdominal distention and came in because he accidentally pulled his PEG tube. PEG was replaced but he had a CT scan which will be discussed below and has more abdominal distention. He has had no new respiratory issues. He has had no recent fevers, chills, or night sweats. PAST MEDICAL HISTORY: Significant for cerebrovascular disease with overall very poor performance status, poor mental status. He is essentially nonverbal and cannot follow commands. He has previous GI bleed, gastric outlet obstruction, diabetes, hepatitis C, coronary artery disease, vascular dementia, hypercholesterolemia. He resides at [facility]. He was seen by GI just about a week ago for anemia and evaluation of his chronic GI bleed. He was found to have esophageal varices. FAMILY HISTORY: Noncontributory to this presentation. REVIEW OF SYSTEMS: Review of systems could not be obtained from the patient since he is nonverbal and not communicative. PHYSICAL EXAMINATION: GENERAL: On exam, he appears chronically on mechanical ventilation. HEENT: Normocephalic and atraumatic. NECK: Supple. No lymphadenopathy. No JVD. CHEST: Symmetric with good expansion bilaterally. He has distant coarse breath sounds bilaterally. CARDIOVASCULAR: He has S1 and S2, which are regular rate and rhythm. ABDOMEN: Abdominal exam shows significant abdominal distention. Positive gas distention of fluid wave. EXTREMITIES: He has trace edema but no clubbing, no cyanosis. ASSESSMENT/PLAN: 1. Abdominal distention. He has multiple abnormal findings on his CT. He now has multiple hypodense, poorly circumscribed liver lesions which were not easily appreciated before. These are concerning since he does have a history of chronic liver disease and history of hepatitis C with esophageal varices, so these may represent hepatocellular carcinomas. This is certainly very concerning and would have a significant impact in his overall prognosis which is already very limited. Consultation Report [facility] [address] [place]. [address] NAME: BARRY GARCIA : 46 STATUS : ADM IN PAT#: [id number] AGE: 65 ADM/REG DATE : 08/15/16 MR#: [id number] REPORT SERV DATE: 08/16/16 DICTATED BY: SHARITA KEARNEY DATE: 08/16/16 REPORT STATUS : Draft TRANSCRIBED BY: MODL DATE: 08/16/16 2. He has what appears to be an ileus but no obvious obstruction and has calcified vasculature in the abdomen consistent with his peripheral vascular disease. 3. His respiratory status is relatively stable which is to say he is ventilator dependent but remained stable on the ventilator and though he has more accumulation of pleural effusions on this CT scan, it is most likely sympathetic since he does have a larger volume of ascites. He will remain on his mechanical ventilation, and we have not made any further changes to his ventilator settings at this time. We will continue to monitor his respiratory status with you though it appears that much of his GI decline is the main truss driver helper of this admission at this time. Please do not hesitate to contact me if I could be of any further assistance. SEPIDEH/RASTA Sharita Kearney M.D. / [id number] CC: Luis F Roldan M.D.
--- NOTE | ~2016-08-15 | DS ---
Discharge Summary [facility] [address] [place]. [address] NAME: BARRY GARCIA : 46 STATUS : DIS IN PAT#: [id number] AGE: 65 ADM/REG DATE : 08/15/16 MR#: [id number] REPORT SERV DATE: 08/26/16 DICTATED BY: LUIS F ROLDAN DATE: 08/25/16 REPORT STATUS : Draft TRANSCRIBED BY: MODL DATE: 08/25/16 Data Collection from hospitalization DISCHARGE DIAGNOSES: 1. Acute/chronic abdominal distention secondary to increased abdominal ascites. 2. Bilateral liver lobe lesion-likely metastatic carcinoma. 3. Chronic respiratory failure-vent dependent. 4. Dysphagia with PEG tube. 5. Chronic encephalopathy status post cerebrovascular accident. 6. Anemia of chronic disease with history of grade 3 esophageal varices and arteriovenous malformation. 7. Anasarca. 8. Seizure disorder. 9. Hypertension. 10.Type 2 diabetes. 11.History of right hemiplegia. 12.Dementia. 13.Hypercholesterolemia. 14.Coronary artery disease. CONSULTATIONS: Dr. Patrice Kearney. Dr. Rolando Rodriguez. PROCEDURES PERFORMED: 1. CT scan of the abdomen and pelvis with contrast, 08/15/2016. 2. Contrast injection into gastrostomy tube, 08/17/2016. 3. PEG tube replacement, 08/16/2016. DISCHARGE MEDICATIONS: Ativan 1 mg-2 mg IV every two hours as needed, morphine 1 mg-2 mg IV every four hours as needed, Keppra 500 mg per PEG tube twice a day. CONDITION AT DISCHARGE: Stable. DISPOSITION: The patient was discharged to [facility] on tube feedings with activities as instructed. HOSPITAL COURSE: This is a 65-year-old male, who is well-known to our service for multiple readmission to [facility] for multiple medical issues, including chronic respiratory failure, recurrent acute blood loss anemia with his last admission. He had been discharged back to [facility] on 08/11/2016. He returned back to [facility] emergency room at this time due to a dislodged PEG tube requiring replacement. The patient is chronically encephalopathic secondary to a history of CVA. He is ventilator dependent. He was admitted to the hospital at this time for further evaluation and treatment. Upon admission, chest x-ray on the day of admission revealed atelectasis and/or infiltrate and effusion in the right lung base, which is the same as a previous study on 08/07/2016. Abdominal and pelvic CT scan compared to a prior scan on 08/02/2016 revealed bibasilar atelectasis and pleural effusion, right greater than left. This was stable on the right and increased on the left compared to 07/23/2016, although poorly visualized on prior Discharge Summary [facility] [id number] [place]. [address] NAME: BARRY GARCIA : 46 STATUS : DIS IN PAT#: [id number] AGE: 65 ADM/REG DATE : 08/15/16 MR#: [id number] REPORT SERV DATE: 08/26/16 DICTATED BY: LUIS F ROLDAN DATE: 08/25/16 REPORT STATUS : Draft TRANSCRIBED BY: RASTA DATE: 08/25/[address] scan. There were multifocal hypodense, poorly circumscribed lesion within both the left and right lobe of the liver suspicious for liver metastatic disease. The largest hypodense lesion measured approximately 2.5 x 4.4 cm in medial segment of left lobe. There was also an enhancing/hyperdense nodule in the lateral segment of the left lobe of the liver measuring 1.9 cm diameter. There was moderate large abdominal ascites, increased from prior CT exam. There was diffuse thickening of a portion of the cecum and ascending colon, diffusely throughout the transverse, descending, and sigmoid colon with infiltration of pericolonic fat plane, most prominent from ascending through proximal descending colon, most consistent with a long segment of diffuse colitis pattern. No pericolonic abscess was seen. Percutaneous gastrostomy tube and suprapubic bladder catheter were in place. It was suspected that there was incompletely obstructing thrombus at the center SMV adjacent to the confluence with splenic vein less likely artifact from non-opacified blood. We would continue to monitor his O2 saturation. Breathing treatments were continued. No changes were made to the vent settings. The patient was seen by Dr. Rolando Rodriguez. The patient was felt to be at risk for recurrent PEG tube dislodgement. He was at risk for aspiration. The patient has a tracheostomy a G tube. The G-tube had come out. He felt the patient would need replacement of the G tube. He planned to replace the G-tube the following day. A potassium level was elevated. IV fluids were being given. Potassium supplementation would be held. The patient is a DNR code status. We would resume Keppra via the PEG tube. Dr. Rolando Rodriguez performed PEG tube replacement and everything appeared well placed afterwards and at this point, he recommended restarting feedings and medications via the tube. The patient was also seen by Dr. Patrice Kearney. A CT scan of the abdomen and pelvis with contrast was performed. He had multiple abnormal findings on a CT scan. He now had multiple hypodense poorly circumscribed liver lesions, which were not easily appreciated before. These were concerning since he does have a history of chronic liver disease and a history of hepatitis C with esophageal varices, so these may represent hepatocellular carcinomas. This was certainly very concerning and would have a significant impact in his overall prognosis, which was already very limited. He had what appeared to be an ileus, but no obvious obstruction and he had calcified vasculature in the abdomen consistent with his peripheral vascular disease. His respiratory status was relatively stable. He is ventilator dependent, but remained stable on the ventilator and although, he had more accumulation of pleural effusions on a CT scan, it was most likely sympathetic since he does have a larger volume of ascites. He was going to remain on mechanical ventilation. No further changes were made to the ventilator settings at this time. On the first, he underwent contrast injection in the gastrostomy tube. This was a functional G-tube. Discharge planning was performed. We were awaiting a family decision regarding hospice. Discharge planning was performed. The patient's family elected to transfer the patient back to [facility] and when all of his family arrived, they would proceed with terminal weaning. On 08/18/2016, discharge instructions were given. Due to his stable condition, he was discharged to [facility] with the above-stated instructions. Information collected by: Molly Duarte I submit the above information as my discharge summary. [facility] Discharge Summary [address] [place]. [address] NAME: BARRY GARCIA : 46 STATUS : DIS IN PAT#: [id number] AGE: 65 ADM/REG DATE : 08/15/16 MR#: [id number] REPORT SERV DATE: 08/26/16 DICTATED BY: LUIS F ROLDAN DATE: 08/25/16 REPORT STATUS : Draft TRANSCRIBED BY: MODL DATE: 08/25/16 Luis F Roldan M.D. / [id number] CC: Gisela Snell M.D. [facility]
--- NOTE | ~2016-08-15 | HP ---
History And Physical [facility] [address] [place]. [address] NAME: BARRY GARCIA : 46 STATUS : ADM IN [facility]#: [id number] AGE: 65 ADM/REG DATE : 08/15/16 MR#: [id number] REPORT SERV DATE: 08/16/16 DICTATED BY: ELIZABETH MATA DATE: 08/16/16 REPORT STATUS : Draft TRANSCRIBED BY: MODL DATE: 08/16/16 DATE OF ADMISSION: 08/15/2016 CHIEF COMPLAINT: Dislodged PEG tube. HISTORY OF PRESENT ILLNESS: The patient is a 65-year-old well known to our service for multiple readmission to [facility] for multiple medical issues to include chronic respiratory failure, recurrent acute blood loss anemia with last admission, discharged back to [facility] on 08/11/2016. The patient was returned back to [facility] ER due to dislodged PEG tube requiring placement. The patient is chronically encephalopathic secondary to history of CVA, ventilator dependent; therefore, unable to obtain complete medical, family, and social history. Most information obtained from reviewing medical records via EMR in [facility] ER notes on 08/15/2016 as well as records received from [facility]. The patient is , but does have a conservator regarding his medical care. Her name is Katelynn Snyder. ALLERGIES: NO KNOWN DRUG ALLERGIES. CODE STATUS: DNR. MEDICATION: Include: 1. Xifaxan 550 mg tablet twice a day. 2. Florastor 250 mg via PEG daily. 3. Simethicone 80 mg via PEG daily. 4. Sodium chloride ophthalmic solution one drop 3 times a day in both eyes. 5. Carafate 1 g via PEG twice a day. 6. Flomax 0.4 mg via PEG at bedtime. 7. Ultram 50 mg via PEG q.6 hours p.r.n. for pain. 8. Magnesium oxide 500 mg via PEG daily. 9. Lasix 20 mg via PEG daily. 10.Humalog insulin sliding scale. 11.Keppra 500 mg via PEG b.i.d. 12.Synthroid 100 mcg via PEG daily. 13.Metformin 1000 mg via PEG daily. 14.Metformin 500 mg via PEG at bedtime. 15.Reglan 5 mg via PEG every 8 hours. 16.Multivitamins via PEG daily. 17.Potassium chloride 20 mEq via PEG daily. 18.DuoNeb inhalation 4 times a day. 19.Artificial tears one drop twice a day in both eyes. 20.Baclofen 10 mg 3 times a day via PEG. 21.Vitamin D 400 units via PEG daily. 22.Erythromycin 500 mg via PEG every 8 hours. History And Physical [address] [address] NAME: BARRY GARCIA : 46 STATUS : ADM IN PAT#: [id number] AGE: 65 ADM/REG DATE : 08/15/16 MR#: [id number] REPORT SERV DATE: 08/16/16 DICTATED BY: ELIZABETH MATA DATE: 08/16/16 REPORT STATUS : Draft TRANSCRIBED BY: RASTA DATE: 08/16/16 23.Nexium 40 mg via PEG daily. 24.Pepcid 20 mg via PEG at bedtime. 25.Ferrous sulfate 300 mg per 5 mL twice a day. PAST MEDICAL HISTORY: Include: 1. Chronic respiratory failure vent dependent, status post CVA. 2. History of type 2 diabetes. 3. Chronic hepatitis C. 4. Dysphagia, status post PEG. 5. History of MRSA pneumonia. 6. History of UTI. 7. History of right hemiplegia. 8. History of hypertension. 9. History of dementia. 10.History of aspiration. 11.History of urinary retention, status post suprapubic catheter placement. 12.History of acute on chronic anemia secondary to acute blood loss with history of AVM. 13.Chronic debility. 14.History of sacral and right trochanter stage IV pressure ulcer. 15.Chronic abdominal distention, multifactorial, with history of ascites seen on CT scan on 07/23/2016 and history of ileus, constipation, gastric outlet syndrome. 16.Coronary artery disease. 17.Hypercholesteremia. 18.Esophageal varices grade 3. PAST SURGICAL HISTORY: 1. Status post PEG tube placement. Replace the PEG tube today by GI. 2. Status post tracheostomy. 3. Status post suprapubic placement in June of 2016. REVIEW OF SYSTEMS: Unable to obtain. The patient with decreased mental status and vent. PHYSICAL EXAMINATION: VITAL SIGN: BP of 107/66, temp 97.9, pulse 95, respiratory rate 22, saturation O2 of 100% with FiO2 of 40% on the vent with CMV with rate of 10, tidal volume set at 500, PIP of 29, PEEP of 8. GENERAL: The patient is chronically ill appearing male, who is awake, but does not track or follow commands, encephalopathic. HEENT: Oral mucosa moist. Eyes JANA, nonicteric bilaterally. NECK: Trach secured on vent. No bleeding noted. CHEST: No chest deformity noted. Symmetrical expansion noted. LUNGS: Mild upper rhonchi noted on bilateral upper lobes, otherwise no wheezing on a vent with diminished breath sounds at bilateral bases. CV: Regular rate and rhythm. Normal S1, S2. No murmurs noted. ABDOMEN: Distended with new PEG tube secured at 2 cm. No bleeding noted. Bowel sound hypoactive on bilateral upper quadrant. Good bowel sounds on bilateral lower quadrant. History And Physical [address] [address] NAME: BARRY GARCIA : 46 STATUS : ADM IN [facility]#: [id number] AGE: 65 ADM/REG DATE : 08/15/16 MR#: [id number] REPORT SERV DATE: 08/16/16 DICTATED BY: ELIZABETH MATA DATE: 08/16/16 REPORT STATUS : Draft TRANSCRIBED BY: RASTA DATE: 08/16/16 Suprapubic secured in the low mid left and right lower quadrant. No bleeding noted. Catheter attached to Olivas bag to gravity. EXTREMITIES: Noted generalized 1 to 2+ edema with bilateral feet, 2+ noted generalized muscle atrophy in the lower extremity and a contracture in bilateral upper and lower extremities. SKIN: Initial wound care assessment dressing noted intact on the right trochanter as well as the sacral area. LABORATORY DATA: 08/15/2016 laboratory studies include a sodium of 139, potassium 5.2, chloride 109, CO2 of 27, BUN 27, creatinine of 0.51, GFR of 129, glucose of 88, mag of 1.9. WBC of 6.1, hemoglobin 8.8, hematocrit 28.3, and platelet of 244. 08/16/2016 labs include sodium of 141, potassium 5.1, chloride 110, CO2 of 26, BUN 22, creatinine of 0.45, GFR 136, glucose of 94, mag of 1.9. WBC 5.2, hemoglobin 9.4, hematocrit 30.7, platelet of 213, AST of 68, bilirubin of 0.4, total protein of 7.0, ALT of 18, albumin 1.6, alkaline phosphate 135, INR 1.3. PT 15.9, PTT of 30.9 on 08/15/2016. Sputum Gram's stain less than 25 epi and less than 25 wbc's with moderate gram-positive bacilli and few gram-positive cocci in cluster, pending culture results. Troponin less than 0.02 on 08/15/2016. IMAGING STUDY: Chest x-ray on 08/15/2016 revealed atelectasis and/or infiltrate and effusion of the right lung base same as previous study on 08/07/2016. Abdominal pelvis CT scan compared to prior scan on 08/02/2016 revealed bibasilar atelectasis and pleural effusion, right greater than left. Stable on the right increasing in the left compared to 07/23/2016 CT, although poorly visualized on prior noncontrast CT exam. There are multifocal hypodense, poorly circumcised lesion within both left and right lobe liver suspicious for liver metastatic disease. Largest hypodense lesion measures approximately 2.5 x 4.4 cm medial segment left lobe. There is also an enhancing/hyperdense nodule lateral segment left lobe of liver measuring 1.9 cm diameter. Moderate large abdominal ascites increased from prior CT exam. Diffuse thickening of portion of the cecum and ascending colon and diffusely throughout the transverse, descending, and sigmoid colon with infiltration of pericolonic fat plane, most prominent from ascending through proximal descending colon most consistent with a long segment diffuse colitis pattern. No pericolonic abscess. Percutaneous gastrostomy tube and suprapubic bladder catheter in place. Suspected incompletely obstructing thrombus at the center SMV adjacent to the confluence with the splenic vein less likely artifact from non-opacified blood. ASSESSMENT: 1. Chronic abdominal distention with a history of ascites, ileus, gastric outlet syndrome likely increased abdominal distention secondary to worsening ascites status. Abdominal ascites seen on CT scan on 08/15/2016. 2. New finding, multiple liver lesion in bilateral right and left liver lobes seen on CT scan on 08/15/2016. 3. Chronic respiratory failure, vent dependent. 4. Recent PEG tube dislodgement. 5. Dysphagia, status post PEG tube. History And Physical [address] [address] NAME: BARRY GARCIA : 46 STATUS : ADM IN [facility]#: [id number] AGE: 65 ADM/REG DATE : 08/15/16 MR#: [id number] REPORT SERV DATE: 08/16/16 DICTATED BY: ELIZABETH MATA DATE: 08/16/16 REPORT STATUS : Draft TRANSCRIBED BY: RASTA DATE: 08/16/16 6. Chronic encephalopathy, status post cerebrovascular accident. 7. Anemia acute on chronic secondary to history of acute blood loss anemia with history of grade 3 esophageal varices and AVM and chronic disease. 8. History of urinary retention, status post suprapubic catheter placement. 9. Anasarca, chronic. 10.Sacral and right trochanter pressure ulcer stage IV, chronic. 11.Severe protein-calorie malnutrition. 12.Chronic debility with contracture. 13.Type 2 diabetes with coronary artery disease. 14.Coronary artery disease. 15.Seizure disorder. 16.Hypomagnesemia. 17.Hypothyroidism. 18.History of chronic hepatitis C. PLAN: 1. Reviewed and discussed the patient's abdominal CT finding with Dr. Silvio Rios regarding new findings of liver lesion and worsening abdominal ascites. Per Dr. Rios, plan to review patient's medical records and we would plan to discuss patient's status with the patient's family member as well as conservator to see how aggressive and how far the family would want to pursue treatment of possible liver lesion as well as worsening ascites. The patient currently stable on his respiratory status and vent setting. So for now, we will continue current medical management. 2. Appreciate Critical Care Pulmonary consult to manage the ventilator at this time. No changes on vent setting. Continue breathing treatment. Continue monitor sat O2. The patient is at risk for hypoxia. Admission chest x-ray and CT scan revealed the patient with stable atelectasis and pleural effusion with right greater than left. 3. Appreciate GI consult for replacement of PEG tube by Dr. Rodriguez. PEG tube placement was confirmed at CT scan. GI did order for tube feeding to be restarted along with meds via PEG. We will monitor tube feeding residual and keep head of bed greater than 30 degrees. The patient is at risk for aspiration. Plan to monitor PEG placement. The patient is at risk for recurrent PEG tube dislodgement. 4. The patient with history of acute on chronic anemia given history of recent acute blood loss. The patient underwent EGD as well as colonoscopy in the last month which finding revealed a grade 3 esophageal varices and AVM. We will continue to monitor H and H. Continue iron supplement. The patient is at risk for further hypoxia and acute coronary syndrome with low H and H. 5. The patient was referred to Wound Care for his chronic right trochanter and sacral wound. Wound care order had been written and we will monitor for any signs or symptoms of infection. The patient is at risk for osteomyelitis. Continue frequent positional changes and we will continue foam to boots to prevent heel breakdown. 6. The patient with chronic anasarca. We will continue Lasix at this time and frequent positional changes. The patient is at risk for skin breakdown. 7. The patient with history of seizure disorder. His Keppra was changed to IV, so it could be continued while the PEG tube was not available. We will plan to resume Keppra via PEG tube. Monitor for any signs and symptoms of breakthrough seizure activity. The patient is at risk for status epilepticus. History And Physical [address] [address] NAME: BARRY GARCIA : 46 STATUS : ADM IN [facility]#: [id number] AGE: 65 ADM/REG DATE : 08/15/16 MR#: [id number] REPORT SERV DATE: 08/16/16 DICTATED BY: ELIZABETH MATA DATE: 08/16/16 REPORT STATUS : Draft TRANSCRIBED BY: RASTA DATE: 08/16/16 8. The patient with history of ileitis and gastric outlet obstruction. The patient with abnormal CT scan, but no signs of bowel obstruction. We will continue prokinetic. Continue PPI and aspiration precaution. We will monitor BMP. The patient is at risk for recurrent bowel obstruction and ileus. 9. The patient with electrolyte imbalance and mainly hypomagnesemia. We will monitor magnesium. Place on electrolyte protocol, so it could be replaced and we will recheck labs in a.m. The patient is at risk for cardiac arrhythmia. 10.The patient's potassium is on high normal. We will closely monitor. The patient is receiving IV fluids. We will hold on potassium supplement. The patient is at risk for cardiac arrhythmia. 11.Code status has been DNR. We will ensure POLST form is in chart. Discussed with the patient's nurse. CLP/MODL Elizabeth Mata NP / [id number] CC: Luis F Roldan M.D.
--- NOTE | ~2016-08-15 | CN ---
Consultation Report [facility] [address] [place]. [address] NAME: BARRY GARCIA : 46 STATUS : ADM IN PAT#: [id number] AGE: 65 ADM/REG DATE : 08/15/16 MR#: [id number] REPORT SERV DATE: 08/16/16 DICTATED BY: BART RODRIGUEZ DATE: 08/16/16 REPORT STATUS : Draft TRANSCRIBED BY: MODL DATE: 08/16/16 CONSULTATION DATE OF CONSULTATION: 08/16/2016 REASON FOR CONSULTATION: Replacement of a G-tube. HISTORY OF PRESENT ILLNESS: Mr. Garcia is a 65-year-old, unfortunate gentleman, who is basically totally dependent on Juarez, not able to swallow. He has a tracheostomy and G-tube. The G-tube had come out and presently has a Olivas catheter placed in that area. They want the G-tube replaced. I have examined the abdominal area, it looked fine. The opening though appears larger than normal. At this point, I will remove the Olivas catheter and replace with a G-tube. IMPRESSION: Replacement of G-tube. RECOMMENDATIONS: We will plan to replace the G-tube and will take out the Olivas catheter. SAMRA/RASTA Omkar Rodriguez M.D. / [id number] CC: Luis F Roldan M.D.
[2016-08-15 20:39] LABS: BASOPHILS ABSOLUTE 0.06 10/3/uL (0.0-0.16); EOSINOPHILS ABSOLUTE 0.67 10/3/uL (0.0-0.53); ER CBC TAT 0 Hrs 05 Mins; HEMATOCRIT 28.3 % (40.0-51.0); HEMOGLOBIN 8.8 g/dL (13.6-17.8); IMMATURE GRANULOCYTES 0.3 %; IMMATURE GRANULOCYTES ABSOLUTE 0.02 10/3/uL (0.0-0.11); LYMPHOCYTES 14.6 %; LYMPHOCYTES ABSOLUTE 0.89 10/3/uL (0.67-4.30); MEAN CORPUS HGB CONC 31.1 g/dL (32.0-36.0); MEAN CORPUSCULAR HEMOGLOB 26.4 pg (26.0-34.0); MEAN PLATELET VOLUME 10.3 fL (9.2-13.0); MONOCYTES 8.7 %; MONOCYTES ABSOLUTE 0.53 10/3/uL (0.21-1.20); NEUTROPHILS 64.4 %; NEUTROPHILS ABSOLUTE 3.93 10/3/uL (2.02-8.40); PLATELET COUNT 244 10/3/uL (150-400); RBC DISTRIBUTION WIDTH 18.2 % (12.0-16.0); RED CELL COUNT 3.33 10/6/uL (4.7-6.1); WHITE BLOOD CELLS 6.1 10/3/uL (4.5-10.5)
[2016-08-15 20:40] LABS: MANUAL DIFF NO %
[2016-08-15 20:47] LABS: INTERNATIONAL NORMAL RATI 1.3 UNITS (-); PROTIME (NOT ORD) 15.9 SEC (12.0-14.5)
[2016-08-15 20:48] LABS: PARTIAL THROMBO TIME 30.9 SEC (22.5-37.2)
[2016-08-15 20:59] LABS: CHEST PAIN PROFILE TAT 0 Hrs 25 Mins; CHLORIDE, SERUM 109 MMOL/L (96-112); CO2 (CARBON DIOXIDE) 27 MMOL/L (24-34); CREATININE 0.51 MG/DL (0.70-1.30); GFR AFRICAN AMERICAN 129 ML/MIN (>=60); GFR NON AFRICAN AMERICAN 111 ML/MIN (>=60); GLUCOSE, SERUM 88 MG/DL (60-99); SODIUM, SERUM 139 MMOL/L (135-148); TROPONIN I <0.02 NG/ML (<0.05)
[2016-08-15 21:03] LABS: BUN (BLOOD UREA NITROGEN) 27 MG/DL (6-23); CALCIUM, SERUM 8.9 MG/DL (8.5-10.4); POTASSIUM, SERUM 5.2 MMOL/L (3.5-5.3)
[2016-08-15] MEDS ORDERED: MULTIVITAMI1 PEG (22:18)
[2016-08-15] MEDS ORDERED: ERY-TAB500 MG PEG (22:19)
[2016-08-15] MEDS ORDERED: FESO4UDL PEG (22:19)
[2016-08-15] MEDS ORDERED: FLOMAX4 PEG (22:19)
[2016-08-15] MEDS ORDERED: KEPPRAUDL PEG (22:20)
[2016-08-15] MEDS ORDERED: PROBIOTIC PEG (22:20)
[2016-08-15] MEDS ORDERED: LIQUID TEARS OPH (22:20)
[2016-08-15] MEDS ORDERED: XIFAXAN550 MG PEG (22:21)
[2016-08-15] MEDS ORDERED: MURO1282% OPH (22:21)
[2016-08-15] MEDS ORDERED: NEXIUM40 MG PEG (22:21)
[2016-08-15] MEDS ORDERED: L20 PEG (22:22)
[2016-08-15] MEDS ORDERED: MYTAB GAS80 MG PEG (22:22)
[2016-08-15] MEDS ORDERED: GLUCOPHAGE1000 MG PEG (22:22)
[2016-08-15] MEDS ORDERED: HUMALOG SC (22:23)
[2016-08-15] MEDS ORDERED: VITAMIN D400 UNI1 PEG (22:23)
[2016-08-15] MEDS ORDERED: PEP20 PEG (22:23)
[2016-08-15] MEDS ORDERED: KCL20UDL PEG (22:24)
[2016-08-15] MEDS ORDERED: LIOR10 PEG (22:24)
[2016-08-15] MEDS ORDERED: SUCR PEG (22:24)
[2016-08-15] MEDS ORDERED: MAGNESIUM OXIDE PEG (22:25)
[2016-08-15] MEDS ORDERED: DUONEB INH (22:26)
[2016-08-15] MEDS ORDERED: GLUCPH PEG (22:26)
[2016-08-15] MEDS ORDERED: REG5 PEG (22:27)
[2016-08-15] MEDS ORDERED: SYN1 PEG (22:28)
[2016-08-15] MEDS ORDERED: ULTRAM50 PEG (22:28)
[2016-08-16 04:28] LABS: BE (BASE EXCESS) 0.7 MEQ/L (0 +/- 2.5); CARBOXYHEMOGLOBIN 0.6 % (0-3); HCO3 (ACTUAL BICARBONATE) 24.9 MEQ/L (23-27); HEMOBLOGIN CONTENT 9.4 G/DL (14-18); INSTRUMENT SERIAL # 8083; METHEMOGLOBIN 0.5 % (0-3); MODE CMV; O2 CONTENT 13.4 VOL% (18-24); OPERATOR ID 33449; PCO2 (CO2 TENSION) 38 MMHG (35-45); PO2 (O2 TENSION) 168 MMHG (79-93); SAMPLE Arterial; TIDAL VOLUME 500 ML; pH 7.43 (7.37-7.43)
[2016-08-16 05:54] LABS: BASOPHILS 0.6 %; BASOPHILS ABSOLUTE 0.03 10/3/uL (0.0-0.16); EOSINOPHILS 10.4 %; EOSINOPHILS ABSOLUTE 0.54 10/3/uL (0.0-0.53); HEMATOCRIT 30.7 % (40.0-51.0); HEMOGLOBIN 9.4 g/dL (13.6-17.8); IMMATURE GRANULOCYTES 0.4 %; IMMATURE GRANULOCYTES ABSOLUTE 0.02 10/3/uL (0.0-0.11); LYMPHOCYTES ABSOLUTE 0.78 10/3/uL (0.67-4.30); MEAN CORPUS HGB CONC 30.6 g/dL (32.0-36.0); MEAN CORPUSCULAR HEMOGLOB 26.5 pg (26.0-34.0); MEAN CORPUSCULAR VOLUME 86.5 fL (80-100); MEAN PLATELET VOLUME 10.5 fL (9.2-13.0); MONOCYTES 13.9 %; MONOCYTES ABSOLUTE 0.72 10/3/uL (0.21-1.20); NEUTROPHILS 59.7 %; PLATELET COUNT 213 10/3/uL (150-400); RBC DISTRIBUTION WIDTH 17.9 % (12.0-16.0); RED CELL COUNT 3.55 10/6/uL (4.7-6.1); WHITE BLOOD CELLS 5.2 10/3/uL (4.5-10.5)
[2016-08-16 05:55] LABS: MANUAL DIFF NO %
[2016-08-16 06:08] LABS: A/G RATIO 0.3 (0.7-1.9); ALBUMIN 1.6 G/DL (3.5-5.0); ALKALINE PHOSPHATASE 135 U/L (45-117); CALCIUM, SERUM 9.2 MG/DL (8.5-10.4); CHLORIDE, SERUM 110 MMOL/L (96-112); CO2 (CARBON DIOXIDE) 26 MMOL/L (24-34); CREATININE 0.45 MG/DL (0.70-1.30); GFR AFRICAN AMERICAN 136 ML/MIN (>=60); GFR NON AFRICAN AMERICAN 117 ML/MIN (>=60); GLOBULIN 5.4 G/DL (2.5-4.1); GLUCOSE, SERUM 94 MG/DL (60-99); POTASSIUM, SERUM 5.1 MMOL/L (3.5-5.3); SGOT(AST) 68 U/L (5-40); SGPT(ALT) 18 U/L (5-65); SODIUM, SERUM 141 MMOL/L (135-148); TOTAL BILIRUBIN 0.4 MG/DL (0-1.2)
[2016-08-16 06:09] LABS: BUN (BLOOD UREA NITROGEN) 22 MG/DL (6-23)
[2016-08-17 07:04] LABS: HEMATOCRIT 26.2 % (40.0-51.0); HEMOGLOBIN 8.1 g/dL (13.6-17.8); MANUAL DIFF YES %; MEAN CORPUS HGB CONC 30.9 g/dL (32.0-36.0); MEAN CORPUSCULAR HEMOGLOB 26.5 pg (26.0-34.0); MEAN CORPUSCULAR VOLUME 85.6 fL (80-100); MEAN PLATELET VOLUME 10.6 fL (9.2-13.0); PLATELET COUNT 216 10/3/uL (150-400); RBC DISTRIBUTION WIDTH 17.9 % (12.0-16.0); RED CELL COUNT 3.06 10/6/uL (4.7-6.1); WHITE BLOOD CELLS 9.3 10/3/uL (4.5-10.5)
[2016-08-17 07:32] LABS: BAND NEUTROPHILS 1 %; EOSINOPHILS 3 %; EOSINOPHILS ABSOLUTE (CALC) 0.28 10/3/uL (0.0-0.53); LYMPHOCYTES 18 %; LYMPHOCYTES ABSOLUTE (CALC) 1.67 10/3/uL (0.67-4.30); MONOCYTES 12 %; MONOCYTES ABSOLUTE (CALC) 1.12 10/3/uL (0.21-1.20); NEUTROPHILS ABSOLUTE (CALC) 6.23 10/3/uL (2.02-8.40); SEGMENTED NEUTROPHIL (0) 66 %; TOTAL NUCLEATED CELLS 100
[2016-08-17 07:33] LABS: ANISOCYTOSIS 1+ (5-10/OIF) (0-5/OIF); PLATELET ESTIMATE ADQ (ADEQUATE)
[2016-08-17 08:40] LABS: CALCIUM, SERUM 8.6 MG/DL (8.5-10.4); CHLORIDE, SERUM 111 MMOL/L (96-112); CO2 (CARBON DIOXIDE) 28 MMOL/L (24-34); CREATININE 0.34 MG/DL (0.70-1.30); GFR AFRICAN AMERICAN 152 ML/MIN (>=60); GFR NON AFRICAN AMERICAN 131 ML/MIN (>=60); GLUCOSE, SERUM 80 MG/DL (60-99); POTASSIUM, SERUM 4.5 MMOL/L (3.5-5.3); SODIUM, SERUM 144 MMOL/L (135-148)
[2016-08-17 08:41] LABS: BUN (BLOOD UREA NITROGEN) 11 MG/DL (6-23)
== END 2016-08-18 14:02 | disposition hospice, inpatient (51) | DRG 393 ==
LOC: ER 19:56 → CCU 22:31
PROVIDERS: Emergency Medicine; Family Medicine
PROC: 5A1945Z Respiratory Ventilation, 24-96 Consecutive Hours (ICD-10-PCS; principal; 2016-08-15)
PROC: 0D20XUZ Change Feeding Device in Upper Intestinal Tract, External Approach (ICD-10-PCS; 2016-08-16)
DX: K94.23 Gastrostomy malfunction (principal); G93.40 Encephalopathy, unspecified; E43 Unspecified severe protein-calorie malnutrition; Z99.11 Dependence on respirator [ventilator] status; L89.154 Pressure ulcer of sacral region, stage 4; L89.214 Pressure ulcer of right hip, stage 4; J96.10 Chronic respiratory failure, unspecified whether with hypoxia or hypercapnia; D62 Acute posthemorrhagic anemia; K56.7 Ileus, unspecified; I85.00 Esophageal varices without bleeding; Z51.5 Encounter for palliative care; Z93.0 Tracheostomy status; Z66 Do not resuscitate; I25.10 Atherosclerotic heart disease of native coronary artery without angina pectoris; N18.9 Chronic kidney disease, unspecified; I12.9 Hypertensive chronic kidney disease with stage 1 through stage 4 chronic kidney disease, or unspecified chronic kidney disease; E11.9 Type 2 diabetes mellitus without complications; G40.909 Epilepsy, unspecified, not intractable, without status epilepticus; E83.42 Hypomagnesemia; E03.9 Hypothyroidism, unspecified; K75.89 Other specified inflammatory liver diseases; I25.2 Old myocardial infarction; Z86.73 Personal history of transient ischemic attack (TIA), and cerebral infarction without residual deficits
CPT/HCPCS: 31720; 36600; 49465; 71010; 74000; 74177; 80048; 80053; 82805; 82962; 83735; 84484; 85025; 85610; 85730; 87070; 87077; 87186; 87205; 87641; 93005; 94002; 94003; 94640; 94770; 99291; A9270-GY; C9113; G0257; J0456; J1953; J2405; Q9967

== ENCOUNTER 2016-08-20 12:46 | Inpatient (IN) | payer MEDICARE, OTHER ==
--- NOTE | ~2016-08-20 | DS ---
Discharge Summary [facility] [address] [place]. [address] NAME: BARRY GARCIA : 46 STATUS : ADM IN [facility]#: [id number] AGE: 65 ADM/REG DATE : 08/20/16 MR#: [id number] REPORT SERV DATE: 08/22/16 DICTATED BY: TAQUERIA DE LA FUENTE DATE: 08/21/16 REPORT STATUS : Draft TRANSCRIBED BY: MODL DATE: 08/21/16 ADMISSION DATE: 08/20/2016 DISCHARGE DATE: DISPOSITION: Discharged back to [facility] for continued comfort care and for terminal weaning. CONDITION: Stable. DIAGNOSES: 1. Chronic abdominal distention secondary to worsening ascites. 2. Large ascites. 3. Metastatic liver cancer. 4. Chronic respiratory failure, status post cerebrovascular accident, vent dependent. 5. History of urinary retention. 6. Dysphagia, status post percutaneous endoscopic gastrostomy. 7. Chronic encephalopathy, status post cerebrovascular accident. 8. Type 2 diabetes. 9. Chronic debility. HOSPITAL COURSE: The patient is a 65-year-old male who is a long-term resident of [facility] was sent back to [facility] Emergency Room on 08/20/2016 for a dysfunctional suprapubic catheter which was replaced in the ER. The patient was admitted back to [facility] secondary to concern of lactic acid elevation with patient coming back from [place] as a full code. He was transferred back on 08/17/2016 as a DNR, comfort measure, and terminal weaning plan. However, this was changed on Sunday on 08/18/2016 secondary to patient's family member which is patient's reportedly wanted patient full code. However, this was discussed with the patient conservator, Ms. Katelynn Snyder, who is also the medical decision making for patient, and instruction was given to proceed with patient DNR and terminal weaning and return back to [facility]. Therefore, patient is being transferred back to [facility] once bed available. PROGNOSIS: Poor. DICTATED BY: Sun Galloway NP DICTATED FOR: Gisela Phillips/RASTA Sun L. Pendon, MANAGER NURSING HOME Discharge Summary [place] [address] [address] NAME: BARRY GARCIA : 46 STATUS : ADM IN PAT#: [id number] AGE: 65 ADM/REG DATE : 08/20/16 MR#: [id number] REPORT SERV DATE: 08/22/16 DICTATED BY: TAQUERIA DE LA FUENTE DATE: 08/21/16 REPORT STATUS : Draft TRANSCRIBED BY: MODL DATE: 08/21/16 Taqueria De La Fuente M.D. / [id number] CC: Luis F Roldan M.D. [facility]
--- NOTE | ~2016-08-20 | DS ---
Discharge Summary [facility] [address] [facility]. [address] NAME: BARRY GARCIA : 46 STATUS : DIS IN PAT#: [id number] AGE: 65 ADM/REG DATE : 08/20/16 MR#: [id number] REPORT SERV DATE: 09/05/16 DICTATED BY: TAQUERIA DE LA FUENTE DATE: 09/04/16 REPORT STATUS : Draft TRANSCRIBED BY: MODL DATE: 09/04/16 Data Collection from hospitalization DISCHARGE DIAGNOSES: 1. Chronic respiratory failure. 2. Hypoxia. 3. Liver nodules. 4. Dysphagia with PEG in place. 5. Seizure disorder. CONSULTATIONS: None. PROCEDURES PERFORMED: 1. CT of the abdomen and pelvis without contrast on 08/20/2016. 2. Ultrasound and fluoroscopic-guided placement of tunneled PleurX abdominal catheter on 08/21/2016. DISPOSITION: [facility]. HOSPITAL COURSE: This 65-year-old male was well known to our service for multiple readmissions to [facility] for multiple medical issues to include chronic respiratory failure, chronic large abdominal ascites with metastatic liver cancer. He was discharged back to [facility] on 08/17/2016 for terminal weaning; however, there was some confusion regarding his medical management, regarding who makes medical decision. The patient's was in part of this stating per Dr. Schafer that she was responsible for decision making of her ; however, Dr. De La Fuente, did confirm this with the patient's conservator, Ms. Katelynn Snyder, that Ms. Snyder was also financier as well as medical decision making for the patient. Therefore, the patient will be placed back on DNR. The patient was chronically encephalopathic secondary to history of CVA, ventilator dependent, unable to obtain complete medical, family, and social history. Most information was obtained from reviewing medical records via EMR and [facility] ER notes on 08/20/2016 visit as well as talking to Dr. Schafer, he was one of the supervising physicians at [facility] and nurse practitioner in charge at [address] where the patient had been a resident for several years. He was admitted for further evaluation and treatment. Upon admission to the hospital, he had been placed on electrolyte replacement protocol. He was continued on his medications from [facility] and had also been placed on subcutaneous correction orders for insulin with level 1 sliding scale insulin. He did undergo the above CT of the abdomen and pelvis on the day of admission. He had tolerated this well, and after discussion with the patient's conservator, who had recommended to discontinue most medications except for comfort measure medications to include Ativan and morphine to resume and continue the patient's Keppra. All lab work as well as Accu-Cheks were also to be discontinued as he was to be placed on terminal weaning and was to be returned back to [facility] when able. He was felt to have a poor prognosis. On 08/21/2016, he did undergo ultrasound and fluoroscopic-guided placement of a tunneled PleurX abdominal catheter and 6.5 liters of fluid was obtain. On 08/22/2016, he was afebrile and his vital signs were stable; however, he was still on the ventilator and did still have an altered mental status. He was continued on his current medications. On 08/24/2016, the nurse had informed that the patient's had called giving approval to proceed with terminal weaning without her or Discharge Summary [address] [address] NAME: BARRY GARCIA : 46 STATUS : DIS IN PAT#: [id number] AGE: 65 ADM/REG DATE : 08/20/16 MR#: [id number] REPORT SERV DATE: 09/05/16 DICTATED BY: TAQUERIA DE LA FUENTE DATE: 09/04/16 REPORT STATUS : Draft TRANSCRIBED BY: RASTA DATE: 09/04/16 any family members present and the was informed that Ms. Snyder was the patient's conservator. Later that same day, the nurse had received a call from Ms. Snyder, the conservator, to go ahead and begin with terminal weaning. He was continued on weaning and comfort care and was on the T-piece. On 08/26/2016, he was sedated and appeared to be comfortable. He did continue to deteriorate, and on 08/27/2016, at 0718 hours, he had been found to be without audible lung sounds and had no audible or palpable pulse and no corneal reflex or pupil reflex. He was therefore pronounced and was released to the above home. Information collected by: Bozena Howard.I.T. I submit the above information as my discharge summary. MECHE/RAINEL Taqueria De La Fuente M.D. / [id number] CC: Luis F Roldan M.D.
--- NOTE | ~2016-08-20 | HP ---
History And Physical [place] [id number] [facility] [place]. [address] NAME: BARRY GARCIA : 46 STATUS : ADM IN PAT#: [id number] AGE: 65 ADM/REG DATE : 08/20/16 MR#: [id number] REPORT SERV DATE: 08/21/16 DICTATED BY: TAQUERIA DE LA FUENTE DATE: 08/21/16 REPORT STATUS : Draft TRANSCRIBED BY: MODL DATE: 08/21/16 DATE OF ADMISSION: 08/20/2016 CHIEF COMPLAINT: Dysfunctional suprapubic. HISTORY OF PRESENT ILLNESS: The patient is a 65-year-old, well known to our service for multiple readmission to [facility] for multiple medical issues to include chronic respiratory failure, chronic large abdominal ascites with metastatic liver cancer, was discharged back to [facility] on 08/17/2016, for terminal weaning. However, there was some confusion regarding patient's medical management regarding, who makes medical decision. The patient's was in part of this stating, per Dr. Schafer, that she was responsible for decision making of her . However, Dr. De La Fuente did confirm this with the patient's conservator, Ms. Katelynn Snyder, today that Ms. Snyder is also financier as well as medical decision making for the patient. Therefore, the patient will be placed back on DNR. The patient is chronically encephalopathic secondary to history of CVA, ventilator dependent, unable to obtain complete medical family and social history. Most information obtained from reviewing medical records via EMR and [facility] ER notes on 08/20/2016, visit as well as talking with Dr. Schafer, who is one of the supervising physician at [facility] and nurse practitioner in charge at [facility] unit where the patient has been a resident for several years. ALLERGIES: NO KNOWN DRUG ALLERGIES. CODE STATUS: DNR. MEDICATIONS: To include DuoNeb inhalation four times a day, Liquid Tears one drop twice a day, baclofen 10 mg every eight hours, vitamin D 400 units daily, erythromycin every eight hours, Nexium 40 mg every day, Pepcid 20 mg at bedtime, iron sulfate 300 mg twice a day, Lasix 20 mg daily, Advil 200 mg every four hours p.r.n. for fever, Humalog injection p.r.n. sliding scale, Keppra 500 mg via PEG twice a day, Synthroid 100 mg per PEG daily, metformin 1000 mg q.a.m. and 500 mg at bedtime, Reglan 5 mg every eight hours, multivitamin one tab via PEG daily, potassium chloride 20 mEq daily, rifaximin 550 mg tablet twice a day, simethicone 80 mg via PEG daily, sodium chloride ophthalmic solution one drop every eight hours in both eyes, Carafate 1 g twice a day, Flomax 0.4 mg cap via PEG at bedtime, tramadol 50 mg every six hours p.r.n., probiotic one cap via PEG daily, and magnesium oxide 500 mg daily. PAST MEDICAL HISTORY: To include: 1. Chronic respiratory failure, vent dependent, status post CVA. 2. History of cirrhosis with large abdominal ascites. 3. Multiple liver lesions likely liver carcinoma with metastases. 4. Chronic hepatitis C. 5. Type 2 diabetes. 6. Dysphagia status post PEG. History And Physical [address] [address] NAME: BARRY GARCIA : 46 STATUS : ADM IN [facility]#: [id number] AGE: 65 ADM/REG DATE : 08/20/16 MR#: [id number] REPORT SERV DATE: 08/21/16 DICTATED BY: TAQUERIA DE LA FUENTE DATE: 08/21/16 REPORT STATUS : Draft TRANSCRIBED BY: RASTA DATE: 08/21/16 7. History of MRSA pneumonia. 8. History of UTI with ESBL. 9. History of right hemiplegia. 10.History of hypertension. 11.History of dementia. 12.History of aspiration. 13.History of urinary retention status post suprapubic pubic catheter, which was replaced on 08/20/2016, initial placement in 06/2016. 14.History of rxyqo-nu-duckuxi anemia secondary to acute blood loss with history of grade 3 esophageal varices and AVM. 15.Chronic debility. 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 17.History of ileus, constipation, gastric outlet syndrome. 18.Coronary artery disease. 19.Hypercholesterolemia. PAST SURGICAL HISTORY: 1. Status post PEG tube placement, replaced on 08/15/2016. 2. Status post tracheostomy. 3. Status post suprapubic tube placement in 06/2016, replaced on 07/20/2016. REVIEW OF SYSTEMS: Unable to obtained in the patient with decreased mental status and vent dependent. PHYSICAL EXAMINATION: VITAL SIGNS: Temp 97.8, pulse of 81, respiratory rate ranged between 23 and 29, BP of 149/74, and sat O2 100% on FiO2 of 32% on a vent. GENERAL STATUS: The patient is chronically ill-appearing male who easily awaken with stimulation but does not track or follow commands, the patient is encephalopathic. HEENT: Oral mucosa moist. Eyes JANA, nonicteric bilaterally. NECK: Trach secured on vent, no bleeding noted. CHEST: No chest deformity noted. Symmetrical expansion. LUNGS: Clear to auscultation. No wheezing noted. The patient on a vent with pressure support of 10, PEEP of 8, and FiO2 of 32%. CV: Regular rate and rhythm. Normal S1, S2. No murmurs noted. ABDOMEN: Chronically distended with PEG tube secured on the left upper quadrant. No bleeding noted. Bowel sounds hypoactive in throughout. Suprapubic catheter intact with catheter attached to [place] bag by gravity, noted mild dark urine. EXTREMITIES: Noted generalized 1 to 2+ edema, especially with bilateral lower extremity, noted generalized muscle atrophy, especially in the lower extremity with contracture in bilateral upper and lower extremities. SKIN: Intact dressing noted in the right trochanter as well as the sacral area. LABORATORY STUDY: On admission with sodium at 142, potassium 4.8, chloride 110, CO2 of 25, BUN 17, creatinine of 0.52, glucose of 122, GFR 128, AST 66, ALP 150, ALT 16, lipase 67. Lactate acid 4.4. ABG on 08/20/2016 was with a pH of 7.43, pCO2 36, pO2 96, HCO2 23.3, and iO2 is 32.0. History And Physical [address] [address] NAME: BARRY GARCIA : 46 STATUS : ADM IN [facility]#: [id number] AGE: 65 ADM/REG DATE : 08/20/16 MR#: [id number] REPORT SERV DATE: 08/21/16 DICTATED BY: TAQUERIA DE LA FUENTE DATE: 08/21/16 REPORT STATUS : Draft TRANSCRIBED BY: MODL DATE: 08/21/16 ABG on 08/21/2016 with pH of 7.43, pCO2 38, pO2 of 108, HCO2 24.7, and iO2 32.0. CBC: WBC of 8.3, hemoglobin 9.3, hematocrit 30.3, platelet of 217, INR 1.3 and PT of 16.2. Abdominal CT scan with oral contrast only without IV contrast on 08/20/2016, revealed multiple focal liver lesion likely related to metastatic disease. The liver has irregular margin, suggesting cirrhosis, this was compared to 08/15/2016 CT scan. ASSESSMENT: 1. Chronic abdominal pain secondary to worsening ascites likely secondary to metastatic liver disease, cirrhosis, history of ileus, gastric outlet syndrome. 2. Large ascites. 3. Probable metastatic liver cancer seen on both CT scan on 08/15/2016 and recent on 08/20/2016. 4. Chronic respiratory failure, status post CVA, vent dependent. 5. Dysphagia, status post PEG. 6. History of urinary retention status post suprapubic catheter, replaced 08/20/2016. 7. Chronic anasarca. 8. Chronic sacral and right trochanteric pressure ulcer, stage IV. 9. Severe protein-calorie malnutrition. 10.Chronic debility with contractures. 11.Type 2 diabetes with coronary artery disease. 12.Coronary artery disease. 13.Seizure disorder. 14.Hypomagnesemia. 15.Hypothyroidism. 16.History of chronic hepatitis. PLAN: 1. Discuss with Dr. De La Fuente who is also in contact with the patient's medical conservator, Ms Katelynn Snyder, plan to place the patient back on DNR status. Plan to discontinue most medication except for comfort measure medication to include Ativan and morphine to resume and we will continue Keppra. Plan to leave the patient on current vent setting but with plan to transfer the patient back to [facility] where the patient will resume terminal weaning per Dr. Taqueria De La Fuente. Ms Katelynn Snyder will be calling family member for discussion of terminal weaning and plan to discuss with the supervising physician as well as the nurse practitioner at [facility] that the patient will remain on DNR and to proceed with terminal weaning. 2. Plan to cancel the patient's scheduled paracentesis since the patient will be returning back to [facility] for terminal weaning. 3. Discontinue all lab work as well as Accu-Chek. Refer the patient to Case Management for plan to return back to [facility] today. I reviewed the patient's medication list. We will plan to discontinue most of medication via PEG tube and will reinstate Ativan and morphine that can be sent back to [facility] where the patient can be medically managed and to proceed with resuming terminal weaning once family arrives. 4. The patient with poor prognosis. History And Physical [place] [address] [facility] [place]. [address] NAME: BARRY GARCIA : 46 STATUS : ADM IN [facility]#: [id number] AGE: 65 ADM/REG DATE : 08/20/16 MR#: [id number] REPORT SERV DATE: 08/21/16 DICTATED BY: TAQUERIA DE LA FUENTE DATE: 08/21/16 REPORT STATUS : Draft TRANSCRIBED BY: RASTA DATE: 08/21/16 DICTATED BY: Sun Galloway NP CLP/MODL Taqueria De La Fuente M.D. / [id number] CC: Luis F Roldan M.D.
[~2016-08-20 12:46] MED LIST changes: +ERY-TAB500 MG PEG; +KCL20UDL PEG; +MAGNESIUM OXIDE PEG; +MULTIVITAMI1 PEG; +MURO1282% OPH; +PROBIOTIC PEG; +REG5 PEG; +SYN1 PEG
[2016-08-20 13:27] LABS: BASOPHILS 0.7 %; BASOPHILS ABSOLUTE 0.06 10/3/uL (0.0-0.16); EOSINOPHILS 8.8 %; EOSINOPHILS ABSOLUTE 0.73 10/3/uL (0.0-0.53); ER CBC TAT 0 Hrs 03 Mins; HEMOGLOBIN 9.3 g/dL (13.6-17.8); IMMATURE GRANULOCYTES 0.6 %; IMMATURE GRANULOCYTES ABSOLUTE 0.05 10/3/uL (0.0-0.11); LYMPHOCYTES ABSOLUTE 0.92 10/3/uL (0.67-4.30); MEAN CORPUS HGB CONC 30.7 g/dL (32.0-36.0); MEAN CORPUSCULAR HEMOGLOB 26.3 pg (26.0-34.0); MEAN CORPUSCULAR VOLUME 85.6 fL (80-100); MEAN PLATELET VOLUME 10.7 fL (9.2-13.0); MONOCYTES 11.2 %; MONOCYTES ABSOLUTE 0.93 10/3/uL (0.21-1.20); NEUTROPHILS 67.7 %; NEUTROPHILS ABSOLUTE 5.65 10/3/uL (2.02-8.40); PLATELET COUNT 217 10/3/uL (150-400); RBC DISTRIBUTION WIDTH 17.9 % (12.0-16.0); RED CELL COUNT 3.54 10/6/uL (4.7-6.1); WHITE BLOOD CELLS 8.3 10/3/uL (4.5-10.5)
[2016-08-20 13:28] LABS: HEMATOCRIT 30.3 % (40.0-51.0); MANUAL DIFF NO %
[2016-08-20 13:34] LABS: INTERNATIONAL NORMAL RATI 1.3 UNITS (-); PROTIME (NOT ORD) 16.2 SEC (12.0-14.5)
[2016-08-20 13:42] LABS: A/G RATIO 0.3 (0.7-1.9); ALBUMIN 1.7 G/DL (3.5-5.0); ALKALINE PHOSPHATASE 150 U/L (45-117); BUN (BLOOD UREA NITROGEN) 17 MG/DL (6-23); CALCIUM, SERUM 8.8 MG/DL (8.5-10.4); CHLORIDE, SERUM 110 MMOL/L (96-112); CO2 (CARBON DIOXIDE) 25 MMOL/L (24-34); CREATININE 0.52 MG/DL (0.70-1.30); GFR AFRICAN AMERICAN 128 ML/MIN (>=60); GFR NON AFRICAN AMERICAN 110 ML/MIN (>=60); GLOBULIN 5.8 G/DL (2.5-4.1); GLUCOSE, SERUM 122 MG/DL (60-99); POTASSIUM, SERUM 4.8 MMOL/L (3.5-5.3); SGOT(AST) 66 U/L (5-40); SGPT(ALT) 16 U/L (5-65); SODIUM, SERUM 142 MMOL/L (135-148); TOTAL BILIRUBIN 0.4 MG/DL (0-1.2); TOTAL PROTEIN 7.5 G/DL (6.0-8.5)
[2016-08-20 14:51] LABS: BE (BASE EXCESS) -0.7 MEQ/L (0 +/- 2.5); CARBOXYHEMOGLOBIN 0.7 % (0-3); HCO3 (ACTUAL BICARBONATE) 23.3 MEQ/L (23-27); HEMOBLOGIN CONTENT 9.8 G/DL (14-18); INSTRUMENT SERIAL # 8087; METHEMOGLOBIN 0.5 % (0-3); MODE SIMV; O2 CONTENT 13.4 VOL% (18-24); OPERATOR ID 18801; PCO2 (CO2 TENSION) 36 MMHG (35-45); PO2 (O2 TENSION) 96 MMHG (79-93); PRESSURE SUPPORT 10 cm.H2O; SAMPLE Arterial; TIDAL VOLUME 500 ML; pH 7.43 (7.37-7.43)
[2016-08-20] MEDS ORDERED: ADVIL PEG (15:20)
[2016-08-21 03:52] LABS: BE (BASE EXCESS) 0.5 MEQ/L (0 +/- 2.5); HCO3 (ACTUAL BICARBONATE) 24.7 MEQ/L (23-27); HEMOBLOGIN CONTENT 9.2 G/DL (14-18); INSTRUMENT SERIAL # 8083; METHEMOGLOBIN 0.4 % (0-3); MODE SIMV; O2 CONTENT 12.7 VOL% (18-24); PCO2 (CO2 TENSION) 38 MMHG (35-45); PO2 (O2 TENSION) 108 MMHG (79-93); PRESSURE SUPPORT 10 cm.H2O; SAMPLE Arterial; TIDAL VOLUME 500 ML; pH 7.43 (7.37-7.43)
== END 2016-08-27 07:18 | disposition expired | DRG 435 ==
LOC: ER 12:46 → MIC 15:48
PROVIDERS: Emergency Medicine; Family Medicine
PROC: 0W9G30Z Drainage of Peritoneal Cavity with Drainage Device, Percutaneous Approach (ICD-10-PCS; principal; 2016-08-21)
DX: C22.8 Malignant neoplasm of liver, primary, unspecified as to type (principal); L89.154 Pressure ulcer of sacral region, stage 4; E43 Unspecified severe protein-calorie malnutrition; R18.0 Malignant ascites; L89.214 Pressure ulcer of right hip, stage 4; G93.49 Other encephalopathy; Z99.11 Dependence on respirator [ventilator] status; J96.10 Chronic respiratory failure, unspecified whether with hypoxia or hypercapnia; G81.91 Hemiplegia, unspecified affecting right dominant side; C79.9 Secondary malignant neoplasm of unspecified site; Z51.5 Encounter for palliative care; K74.60 Unspecified cirrhosis of liver; Z66 Do not resuscitate; I69.321 Dysphasia following cerebral infarction; R53.81 Other malaise; E11.9 Type 2 diabetes mellitus without complications; I25.10 Atherosclerotic heart disease of native coronary artery without angina pectoris; G40.909 Epilepsy, unspecified, not intractable, without status epilepticus; E83.42 Hypomagnesemia; E03.9 Hypothyroidism, unspecified; K73.9 Chronic hepatitis, unspecified; Z93.1 Gastrostomy status; Z87.440 Personal history of urinary (tract) infections; Z87.01 Personal history of pneumonia (recurrent); I10 Essential (primary) hypertension; F03.90 Unspecified dementia, unspecified severity, without behavioral disturbance, psychotic disturbance, mood disturbance, and anxiety; Z79.4 Long term (current) use of insulin; Z79.84 Long term (current) use of oral hypoglycemic drugs; Z79.899 Other long term (current) drug therapy; Z93.0 Tracheostomy status
CPT/HCPCS: 31720; 36600; 49418; 74176; 80053; 82805; 82962; 83605; 83690; 85025; 85610; 87641; 94002; 94003; 94640; 99285; A9270-GY; C9113; Q9967